=== PATIENT | male | born 1955 | race Caucasian/White ===

== ENCOUNTER → 2018-04-01 | Outpatient (CLI) | payer MEDICARE ==
[~2018-04-01] MED LIST: BUPIVACAINE 7.5MG/ML /DEXTROSE 82.5MG/ML 2 ML AMP INJ ONE; ENALAPRIL MALEA20 MG PO; HYDROCHLOROTHIA25 MG PO; MELOXICAM15 MG PO; NORCO 10-325 T1 EACH PO
--- NOTE | 2018-04-01 07:29 | Diagnostic Imaging Report ---
PROCEDURE: X-RAY CHEST, TWO VIEWS COMPARISON: None. INDICATIONS: PREOP LEFT HIP FINDINGS: The lungs are well-inflated. Linear opacity in the left lung base may reflect chronic change or subsegmental atelectasis. No consolidation, pleural effusion, or pneumothorax. Tortuosity and atherosclerotic calcification of the thoracic aorta with otherwise normal cardiomediastinal contour. No overt pulmonary edema. No acute osseous abnormality. CONCLUSION: Linear atelectasis or fibrotic change in the left lung base. Otherwise no acute cardiopulmonary abnormality. Dictated by: Dino Black M.D. on 04/01/2018 at 7:37 Electronically approved by: Dino Black M.D. on 04/01/2018 at 7:37
== END ==
LOC: RAD 06:28
PROVIDERS: ATTEND Internal Medicine
DX: Z01.818 Encounter for other preprocedural examination (principal)
CPT/HCPCS: 71046

== ENCOUNTER 2018-04-02 05:24 | Inpatient (IN) | payer MEDICARE ==
[2018-04-02] VITALS (7 sets, daily range): BP systolic 105–113; BP diastolic 57–71
[~2018-04-02] VITALS: Ht 182.9 cm; Wt 124.3 kg
[~2018-04-02 05:24] MED LIST changes: -BUPIVACAINE 7.5MG/ML /DEXTROSE 82.5MG/ML 2 ML AMP INJ ONE
[2018-04-02] MEDS ORDERED: CELECOXIB 200 MG CAP ONE (06:34)
[2018-04-02] MEDS ORDERED: DEXAMETHASONE SOD PHOS 10 MG/1 ML VIAL ONE (06:34)
[2018-04-02] MEDS ORDERED: GABAPENTIN 300 MG CAP ONE (06:34)
[2018-04-02] MEDS ORDERED: VANCOMYCIN 1GM/NS 250 ML 250 ML ONE (06:35)
[2018-04-02] MEDS ORDERED: MUPIROCIN 2% OINT 22 GM TUBE ONE (06:45)
[2018-04-02] MEDS ORDERED: BACITRACIN 50,000 UNIT VIAL ONE (06:45)
[2018-04-02] MEDS ORDERED: ROPIVACAINE 246.25 MG, EPINEPHRINE HCL 1:1000 0.5 MG, CLONIDINE HCL 0.08 MG, KETOROLAC ... INJ ONE ×5 (07:15)
[2018-04-02] MEDS ORDERED: TRANEXAMIC ACID 1,000 MG/10 ML ML ONE (07:19)
[2018-04-02] MEDS: SODIUM CHLORIDE 0.9% 1000ML 1,000 ML IV SCH ×2 (09:32→19:32)
[2018-04-02] MEDS ORDERED: DIPHENHYDRAMINE HCL INJ 50 MG/ML VIAL IM/IV PRN (09:45)
[2018-04-02] MEDS ORDERED: KETOROLAC TROMETHAMINE 30 MG/ML VIAL IV PRN (09:45)
[2018-04-02] MEDS ORDERED: HYDROCODONE/APAP 7.5MG-325MG 1 EA TAB PO PRN (09:45)
[2018-04-02] MEDS ORDERED: ACETAMINOPHEN 650 MG SUPP PR PRN (09:45)
[2018-04-02] MEDS ORDERED: DOCUSATE SODIUM 100 MG CAP PO PRN (09:45)
[2018-04-02] MEDS ORDERED: ONDANSETRON HCL INJ 2 MG/ML VIAL IV PRN (09:45)
[2018-04-02] MEDS ORDERED: HYDROCODONE/APAP 5MG-325MG TAB PO PRN (09:45)
[2018-04-02] MEDS ORDERED: PROMETHAZINE HCL (IM) 25 MG/ML VIAL IM PRN (09:45)
--- NOTE | 2018-04-02 10:01 | Diagnostic Imaging Report ---
PROCEDURE:X-RAY PELVIS, AP VIEW COMPARISON:None. INDICATIONS:POST LEFT HIP SURGERY FINDINGS: Status post bilateral total hip arthroplasties. Hardware appears intact. No evidence of fracture or malalignment on frontal view. Recent post operative changes in the left hip with superficial and deep gas. CONCLUSION: Post operative changes status post recent left hip arthroplasty and prior right hip arthroplasty as above. Intact hardware without evidence of malalignment. Dictated by: WARD TAYLOR M.D. on 04/02/2018 at 10:10 Electronically approved by: WARD TAYLOR M.D. on 04/02/2018 at 10:10
--- NOTE | 2018-04-02 11:38 | Operative Report ---
DATE OF PROCEDURE: April 02, 2018 [facility] END: Jan Soto PA-C The patient was brought to the operating room for induction of anesthesia. Throughout this case, my PA's assistance was necessary for retraction of soft tissue and positioning of the extremity. This allows for efficient and technically successful execution of the operation and is considered medically necessary. PREOPERATIVE DIAGNOSIS: Osteoarthritis, left hip. POSTOPERATIVE DIAGNOSIS: Osteoarthritis, left hip. PROCEDURE: Left total hip arthroplasty. INDICATIONS: The patient is a 62-year-old gentleman who has end-stage arthritis of his left hip. He has been through a right total hip replacement and bilateral knee replacements. His left hip has severe erosions into the femoral head with superolateral subluxation. The findings and options have been discussed. The patient would like to proceed with a left total hip replacement. The risks and benefits have been reviewed. The implants have been discussed. He states he understands and wishes to proceed. DESCRIPTION OF PROCEDURE: The patient was brought into the operating room and given a spinal anesthetic. He received prophylactic antibiotics and tranexamic acid in the holding area. He was positioned in the right lateral decubitus position. His left hip was prepped and draped in a sterile manner. Some added time and challenges were encountered due to the patient's weight of 270 pounds. His left hip was prepped and draped in a sterile manner. A preoperative time out was performed. A posterior approach was made to the left hip. Hemostasis was obtained with electrocautery. Abundant subcutaneous adipose tissue was encountered. The proximal tensor fascia and gluteal fascia were incised. A deep self-retaining Charnley retractor was placed. The wound was quite deep. The posterior capsule and short external rotators were exposed. Hemostasis was further obtained. The posterior capsule was released, and the hip was dislocated. An oscillating saw was used to resect the femoral head. Advanced erosions of the femoral head were noted. Acetabular retractors were placed. Sequential soft-tissue releases were performed until I had good visualization of the socket. A hypertrophic superior labrum was excised. The true floor of the acetabulum was established with a 46-mm reamer. The socket was then sequentially reamed up to 59 mm. A Helga Biomet 60 mm outer diameter OsseoTi cup was then impacted into place. The hip had been thoroughly irrigated with a shower-tip pulsatile lavage. Good fixation was felt to be obtained. Fixation was augmented with a single 25-mm cancellous screw placed into the ilium. Marginal osteophytes particularly over the anterior rim were excised. A highly cross-link polyethylene liner with a 36 mm inner diameter was then impacted into place. Care was taken to make sure that there was no evidence of soft-tissue interposition. A portion of a 100-mL premixed pericapsular DEAJH injection was placed into the surrounding acetabular tissue. The socket was packed with moistly soaked lap sponge, and attention was directed towards the proximal femur. A box cutting osteotome and taper pin reamer were used to establish entry to the femoral canal. The Helga Biomet Taperloc broaches were then impacted. A #18 stem was necessary for stability and trial reductions. I felt that a +3-mm femoral head provided appropriate voodoo of limb length and stability. The hip was carefully put through a full arc of motion. There was no anterior impingement or dislocation with the knee at 90 degrees of flexion and 30 degrees of internal rotation. The trial components were removed. The hip was further irrigated with a shower-tip pulsatile lavage. The remainder of the DEJAH injection was placed into the surrounding soft tissue. The implants were seated, and a final reduction was performed. The head was ceramic. The posterior capsule was quite hypertrophic and nicely repaired with interrupted #2 Ethibond. The proximal tensor fascia and gluteal fascia were closed with #2 Ethibond. The skin was closed with subcuticular Vicryl and emeterio. A sterile Aquacel bandage was applied. The patient was returned to the supine position. He was transported to the recovery room in stable condition. Blood loss was approximately 100 mL; and at the end of the procedure, all needle and sponge counts were correct. Job#: [id number]
[2018-04-02] MEDS: ACETAMINOPHEN 1000 MG/100 ML IV SCH ×2 (12:11→17:17)
--- OUTSIDE RECORDS SUMMARY | 2018-04-02 14:31 | XMS REPORT | Clinical Summary ---
Author Author [facility] Organization [facility] Address Unknown Phone Unavailable Care Team Providers Care Oven Worker Name Role Phone Albert Sherman MD PCP Allergies Active Allergy Reactions Severity Noted Date Comments Penicillins Other 01/31/2011 Current Medications Prescription Sig. Disp. Refills Start End Date Status Date Meloxicam 15 mg Take 1 tablet by mouth 90 tablet 1 02/10/20 Active tabletIndications: Left daily 17 hip pain fenofibrate Take 1 tablet by mouth 90 tablet 1 05/28/20 Active nanocrystallized (TRICOR) daily. 17 145 mg tabletIndications: Hypertriglyceridemia hydroCHLOROthiazide TAKE 1 TABLET BY MOUTH 90 tablet 1 12/19/19 Active (HYDRODIURIL) 25 mg DAILY 18 tabletIndications: Uncontrolled hypertension enalapril (VASOTEC) 20 mg TAKE 1 TABLET BY MOUTH 180 tablet 0 03/21/20 Active tabletIndications: TWO TIMES DAILY 18 Uncontrolled hypertension HYDROcodone-acetaminophen Take 1 tablet by mouth 11/01/19 Discontin (NORCO) 10-325 mg tablet every 6 hours as needed 18 ued for Pain. hydroCHLOROthiazide Take 1 tablet by mouth 90 tablet 1 02/09/20 06/15/20 Discontin (HYDRODIURIL) 25 mg daily. 17 17 ued tabletIndications: Uncontrolled hypertension enalapril (VASOTEC) 20 mg Take 1 tablet by mouth 2 180 tablet 1 02/09/20 09/08/19 Discontin tabletIndications: times daily. 17 18 ued Uncontrolled hypertension Meloxicam 15 mg Take 1 tablet by mouth 90 tablet 2 02/09/20 08/21/19 Discontin tabletIndications: Left daily. 17 18 ued hip pain gabapentin (NEURONTIN) Take 1 tablet once daily 276 capsule 1 05/28/20 08/25/19 Discontin 300 mg for 2 days , then take 1 17 18 ued capsuleIndications: Right tablet twice daily for 2 inguinal pain, Left hip days then take 1 tablet pain three times daily for three months .. hydroCHLOROthiazide TAKE 1 TABLET BY MOUTH 90 tablet 1 06/18/19 12/12/19 Discontin (HYDRODIURIL) 25 mg DAILY 18 18 ued tabletIndications: Uncontrolled hypertension sulfamethoxazole-trimetho Take 1 tablet by mouth 2 20 tablet 0 07/16/19 07/16/19 Discontin prim (BACTRIM DS) 800-160 times daily for 10 days. 18 18 ued mg per tabletIndications: Cellulitis and abscess of leg, except foot naproxen (NAPROSYN) 500 Take 1 tablet by mouth 2 30 tablet 0 07/16/19 08/23/19 Discontin mg tabletIndications: times daily (with meals). 18 18 ued Cellulitis and abscess of leg, except foot sulfamethoxazole-trimetho Take 1 tablet by mouth 2 20 tablet 0 07/16/19 07/26/19 prim (BACTRIM DS) 800-160 times daily for 10 days. 18 18 mg per tabletIndications: Cellulitis and abscess of leg, except foot Meloxicam 15 mg Take 1 tablet by mouth 90 tablet 2 08/23/19 11/01/19 Discontin tabletIndications: Left daily. 18 18 ued hip pain enalapril (VASOTEC) 20 mg TAKE 1 TABLET BY MOUTH 180 tablet 1 09/08/19 03/17/20 Discontin tabletIndications: TWO TIMES DAILY 18 18 ued Uncontrolled hypertension acetaminophen (TYLENOL) Take 1 tablet by mouth 56 tablet 0 11/01/19 11/15/19 325 mg tabletIndications: every 6 hours for 14 18 18 Status post total days. replacement of right hip aspirin 325 mg Take 1 tablet by mouth 2 84 tablet 0 11/01/19 12/13/19 tabletIndications: Status times daily for 42 days. 18 18 post total replacement of right hip docusate sodium (COLACE) Take 1 capsule by mouth 2 10 capsule 0 11/01/19 11/11/19 100 mg times daily for 10 days. 18 18 capsuleIndications: Status post total replacement of right hip traMADol (ULTRAM) 50 mg Take 1 tablet by mouth 30 tablet 2 11/01/19 11/15/19 tabletIndications: Status every 6 hours as needed 18 18 post total replacement of for up to 14 days for right hip Pain. HYDROcodone-acetaminophen Take 1 to 2 tablets by 50 tablet 0 10/31/11/15/19 (NORCO) 10-325 mg mouth every 4 to 6 hours 18 18 tabletIndications: Status as needed for pain. post total replacement of right hip methocarbamol (ROBAXIN) Take 1 tablet by mouth 4 56 tablet 0 11/01/19 11/15/19 750 mg tabletIndications: times daily for 14 days. 18 18 Status post total replacement of right hip tiZANidine (ZANAFLEX) 4 Take 1 tablet by mouth 3 42 tablet 0 11/01/19 11/01/19 Discontin mg tabletIndications: times daily for 14 days. 18 18 ued Status post total replacement of right hip tiZANidine (ZANAFLEX) 4 Take 1 tablet by mouth 3 42 tablet 0 10/31/11/15/19 mg tabletIndications: times daily for 14 days. 18 18 Status post total replacement of right hip Active Problems Problem Noted Date Arthritis of left hip 01/10/2018 Overview: Added automatically from request for surgery [id number] Impaired functional mobility, balance, gait, and endurance 11/14/2017 S/P total hip arthroplasty 10/31/2017 Hip osteoarthritis 08/27/2017 Overview: Added automatically from request for surgery [id number] Arthritis of both hips 08/13/2017 Chronic right shoulder pain 08/10/2017 Pain of left hip joint 08/10/2017 Cellulitis and abscess of left leg 07/25/2017 Shoulder pain 02/10/2014 Resolved Problems Problem Noted Date Resolved Date Osteoarthritis of right hip 10/25/2017 10/31/2017 Overview: Added automatically from request for surgery [id number] Encounters Date Type Specialty Care Team Description 03/29/2018 Refill Family Practice Albert Sherman MD Left hip pain 03/17/2018 Refill Family Practice Albert Sherman MD Uncontrolled hypertension 02/27/2018 Procedure Pass 02/13/2018 Office Visit Orthopedics Vinny Rossi MD Primary osteoarthritis of one hip (Primary Dx) 01/10/2018 Hospital Radiology Albert Sherman MD Arthritis of both hips Encounter 01/10/2018 Office Visit Orthopedics Keith Purvis MD Arthritis of left hip Addie Kate MD (Primary Dx); Arthritis of both hips 12/11/2017 Refill [facility] Albert Sherman MD Uncontrolled hypertension 12/10/2017 Hospital Radiology Keith Purvis MD Arthritis of both hips Encounter 12/10/2017 Office Visit Orthopedics Keith Purvis MD S/P hip replacement, Addie Kate MD right (Primary Dx) 12/10/2017 Ancillary Orthopedics Tavares Lopez RN Arthritis of both hips Orders 11/14/2017 Therapy Physical Therapy Chhaya, Nayeli, PT Status post total replacement of right hip (Primary Dx); Impaired functional mobility, balance, gait, and endurance 11/14/2017 Office Visit Orthopedics Addie Kate MD Status post total Keith Purvis MD replacement of right hip 11/14/2017 [facility] Radiology Keith Purvis MD Status post total Encounter replacement of right hip 11/07/2017 Emergency Emergency Medicine Blaine Nur MD Leg swelling (Primary Dx) 11/07/2017 Nurse Triage Tracy Hein RN 11/06/2017 Pharmacy Visit 11/05/2017 Pharmacy Visit 11/02/2017 Pharmacy Visit 11/01/2017 Pharmacy Visit 10/31/2017 Pharmacy Visit 10/30/2017 [facility] Addie Kate MD Primary osteoarthritis of - Encounter right hip (Primary Dx); 11/01/2017 Osteoarthritis of right hip, unspecified osteoarthritis type; Status post total replacement of right hip 10/30/2017 Procedure Pass 10/30/2017 Surgery Addie Kate MD ORTHO - REPLACEMENT, TOTAL HIP 10/23/2017 Hospital Keith Purvis MD Encounter 10/23/2017 Telephone Orthopedics Brandon Puente, Appointment Related ResidentMD Questions 10/23/2017 Procedure Pass 10/03/2017 [facility] Anesthesiology Karma Gleason, ERASMO Encounter 10/03/2017 Anesthesia Karma Gleason, ERASMO Event 09/18/2017 Nutrition Nutrition Kristel Peter 09/07/2017 Refill [facility] Albert Sherman MD Uncontrolled hypertension 08/27/2017 [facility] Radiology Patrice Anand MD Encounter 08/27/2017 Office Visit Orthopedics Keith Purvis MD Arthritis of both hips (Primary Dx) 08/24/2017 Ancillary Radiology Albert Sherman MD Procedure 08/24/2017 Office Visit [facility] Albert Sherman MD Bilateral hip pain (Primary Dx) 08/20/2017 Refill [facility] Albert Sherman MD Left hip pain 08/17/2017 Orders Only [facility] Albert Sherman MD Occult blood positive stool (Primary Dx) 08/15/2017 Pharmacy Visit 08/13/2017 Office Visit Orthopedics Keith Purvis MD Arthritis of both hips (Primary Dx) 08/13/2017 Lab Appointment Lab Albert Sherman MD Screening for condition 08/13/2017 [facility] Radiology Albert Sherman MD Chronic right shoulder Encounter pain; Pain of left hip joint 07/31/2017 Office Visit General Surgery Melissa Cisse NP Right inguinal hernia (Primary Dx) 07/25/2017 Office Visit [facility] Lopez Christopher MD Cellulitis and abscess of left leg (Primary Dx) 07/20/2017 Office Visit [facility] Lopez Christopher MD Colon cancer screening (Primary Dx) 07/18/2017 Office Visit [facility] Lopez Christopher MD Cellulitis and abscess of leg, except foot (Primary Dx) 07/16/2017 Office Visit [facility] Lopez Christopher MD Inguinal hernia of right side without obstruction or gangrene (Primary Dx); Colon cancer screening; Cellulitis and abscess of leg, except foot 07/16/2017 Pharmacy Visit 07/10/2017 [facility] Radiology Albert Sherman MD Encounter 06/27/2017 Orders Only [facility] Albert Sherman MD ERRONEOUS ENCOUNTER--DISREGARD (Primary Dx) 06/15/2017 Refill [facility] Albert Sherman MD Uncontrolled hypertension 06/05/2017 Telephone [facility] Albert Sherman MD Other Follow-up 05/28/2017 Office Visit [facility] Albert Armendariz MD Right inguinal pain (Primary Dx); Left hip pain; Hypertriglyceridemia; Elevated bilirubin; Need for influenza vaccination; Need for qlrktmtftz-eaypjhu-feiwby sis (Tdap) vaccine; Screening for condition after 04/01/2017 Immunizations Name Dates Previously Given Next Due Influenza Vaccine 06/23/2014 Influenza Vaccine, 05/28/2017 Seasonal, Injectable TDap (Tetanus Toxoid, 05/28/2017 Reduced Diphtheria Toxoid And Acellular Pertussis, Absorbed) Social History Tobacco Use Types Packs/Day Years Used Date Never Smoker Smokeless Tobacco: Never Used Tobacco Cessation: Counseling Given: No Alcohol Use Drinks/Week oz/Week Comments No Sex Assigned at Date Recorded Not on file Last Filed Vital Signs Vital Sign Reading Time Taken Blood Pressure 133/67 02/13/2018 7:30 AM CDT Pulse 69 02/13/2018 7:30 AM CDT Temperature 36.9 C (98.5 F) 02/13/2018 7:30 AM CDT Respiratory Rate 20 02/13/2018 7:30 AM CDT Oxygen Saturation 99% 11/07/2017 10:09 PM CDT Inhaled Oxygen - - Concentration Weight 121.4 kg (267 lb 9.6 oz) 02/13/2018 7:30 AM CDT Height 182.9 cm (6') 02/13/2018 7:30 AM CDT Body Mass Index 36.29 02/13/2018 7:30 AM CDT Plan of Treatment Date Type Specialty Care Team Description 06/13/2018 Office Visit Gastroenterology Kalyn Auguste NP Ref#[id number] [address] [place] [address] [id number] Health Maintenance Due Date Last Done Comments Colorectal Cancer Scrn 08/13/2018 08/13/2017 Annual (FIT/FOBT) Age 50 to 75 Implants Implanted Type Area Textile Machine Operator Device Expiration Model / Identifier Date Serial / Lot Bone Screw 6.5mm Diameter 25mm Right: Helga Pimovation 08/16/2027 Length Hip(s) / Implanted: Qty: 1 on 10/30/2017 by / Addie Kate MD [id number] Taperloc Complete Primary Femoral Right: Biomet Pimovation 05/05/2027 [id number] Porous Coated Stem Reduced Distal Hip(s) / [id number] Standard Offset Type 1 / Taper [id number] Implanted: Qty: 1 on 10/30/2017 by Addie Kate MD [id number] Osseoti Acetabular Shell 4 Hole Right: [employer] 10/27/2025 [id number] Shell Size 64mm Liner Size H Hip(s) / Implanted: Qty: 1 on 10/30/2017 by / Addie Kate MD [id number] Acetabular Liner Neutral Arcomxl Right: [employer] 12/16/2019 [id number] Highly Crosslinked Head Size 40mm Hip(s) / Liner Size H / Implanted: Qty: 1 on 10/30/2017 by [id number] Addie Kate MD G7 Acetabular Liner Neutral E1 Head Right: [employer] 05/21/2022 [id number] Size 36mmm Liner H Hip(s) / Implanted: Qty: 1 on 10/30/2017 by / Addie Kate MD [id number] Modular Head Component +3mm Neck Right: [employer] 08/11/2027 [id number] 36mm Type 1 Taper Hip(s) / Implanted: Qty: 1 on 10/30/2017 by / Addie Kate MD [id number] Procedures Procedure Name Priority Date/Time Associated Diagnosis Comments XRAY HIP BILATERAL 2 Routine 01/10/2018 Arthritis of both hips Results for this VIEWS AND AP PELVIS 8:23 AM CDT procedure are in the results section. XRAY HIP UNILATERAL 2/3 Routine 12/10/2017 Arthritis of both hips Results for this VIEWS 9:42 AM CDT procedure are in the results section. XRAY HIP BILATERAL 2 Routine 11/14/2017 Status post total Results for this VIEWS AND AP PELVIS 9:55 AM CDT replacement of right hip procedure are in the results section. VBG POC Routine 11/07/2017 Results for this 9:20 PM CDT procedure are in the results section. BMP POC Routine 11/07/2017 Results for this 9:19 PM CDT procedure are in the results section. DUPLEX DOPPLER LOWER STAT 11/07/2017 Results for this EXTREMITY VENOUS, 7:50 PM CDT procedure are in the UNILATERAL OR LIMITED results section. BMP POC Routine 11/07/2017 Results for this 4:38 PM CDT procedure are in the results section. VBG POC Routine 11/07/2017 Results for this 4:38 PM CDT procedure are in the results section. CBC/DIFF STAT 11/07/2017 Results for this 4:32 PM CDT procedure are in the results section. 12 LEAD EKG Routine 11/07/2017 Results for this 4:27 PM CDT procedure are in the results section. CONSULT CLINICAL CASE Routine 10/31/2017 MANAGEMENT (RN/SW) 8:24 AM CDT IP CONSULT TO Routine 10/31/2017 OCCUPATIONAL THERAPY 8:23 AM CDT BASIC METABOLIC PANEL Routine 10/31/2017 Results for this 5:36 AM CDT procedure are in the results section. CBC/DIFF Routine 10/31/2017 Results for this 5:36 AM CDT procedure are in the results section. HEAD TELLER Routine 10/30/2017 6:23 PM CDT CONSULT CLINICAL CASE Routine 10/30/2017 MANAGEMENT (RN/SW) 3:46 PM CDT CONSULT CLINICAL CASE Routine 10/30/2017 MANAGEMENT (RN/SW) 3:45 PM CDT HEAD TELLER Routine 10/30/2017 3:45 PM CDT IP CONSULT TO PHYSICAL Routine 10/30/2017 THERAPY 2:27 PM CDT CBC/DIFF Routine 10/30/2017 Results for this 1:10 PM CDT procedure are in the results section. XRAY PELVIS 1 VIEW Routine 10/30/2017 Osteoarthritis of right Results for this 12:51 PM CDT hip, unspecified procedure are in the osteoarthritis type results section. XRAY PELVIS 1 VIEW Routine 10/30/2017 Results for this 12:37 PM CDT procedure are in the results section. VENOUS CORD BLOOD STAT 10/30/2017 Results for this HEMOGLOBIN 10:33 AM CDT procedure are in the results section. BLOOD GAS, AYAAN STAT 10/30/2017 Results for this 10:33 AM CDT procedure are in the results section. ELECTROLYTES STAT 10/30/2017 Results for this 10:33 AM CDT procedure are in the results section. CALCIUM, IONIZED STAT 10/30/2017 Results for this 10:33 AM CDT procedure are in the results section. GLUCOSE STAT 10/30/2017 Results for this 10:33 AM CDT procedure are in the results section. XRAY PELVIS 1 VIEW Routine 10/30/2017 Results for this 10:12 AM CDT procedure are in the results section. XRAY PELVIS 1 VIEW Routine 10/30/2017 Primary osteoarthritis of Results for this 9:58 AM CDT right hip procedure are in the results section. VENOUS HEMOGLOBIN STAT 10/30/2017 Results for this 9:32 AM CDT procedure are in the results section. BLOOD GAS, AYAAN STAT 10/30/2017 Results for this 9:32 AM CDT procedure are in the results section. SODIUM STAT 10/30/2017 Results for this 9:32 AM CDT procedure are in the results section. POTASSIUM STAT 10/30/2017 Results for this 9:32 AM CDT procedure are in the results section. CALCIUM, IONIZED STAT 10/30/2017 Results for this 9:32 AM CDT procedure are in the results section. GLUCOSE STAT 10/30/2017 Results for this 9:32 AM CDT procedure are in the results section. CHLORIDE STAT 10/30/2017 Results for this 9:32 AM CDT procedure are in the results section. ORTHO - REPLACEMENT, 10/30/2017 Osteoarthritis of right TOTAL HIP 7:30 AM CDT hip TYPE AND SCREEN Routine 10/03/2017 10:45 AM CDT PT/INR STAT 10/03/2017 Results for this 10:45 AM CDT procedure are in the results section. CBC/DIFF STAT 10/03/2017 Results for this 10:45 AM CDT procedure are in the results section. BASIC METABOLIC PANEL STAT 10/03/2017 Results for this 10:45 AM CDT procedure are in the results section. XRAY HIP UNILATERAL 2/3 STAT 08/27/2017 Arthritis of both hips Results for this VIEWS 8:43 AM CDT procedure are in the results section. 12 LEAD EKG Routine 08/24/2017 Bilateral hip pain Results for this 1:31 PM BRANCH OPERATIONS MANAGER procedure are in the results section. XRAY CHEST 2 VIEWS Routine 08/24/2017 Bilateral hip pain Results for this 1:28 PM BRANCH OPERATIONS MANAGER procedure are in the results section. XRAY HIP UNILATERAL 2/3 Routine 08/13/2017 Pain of left hip joint Results for this VIEWS 1:34 PM BRANCH OPERATIONS MANAGER procedure are in the results section. XRAY CLAVICLE COMPLETE Routine 08/13/2017 Chronic right shoulder Results for this 1:34 PM BRANCH OPERATIONS MANAGER pain procedure are in the results section. XRAY SHOULDER 2 VIEWS MIN Routine 08/13/2017 Chronic right shoulder Results for this 1:34 PM BRANCH OPERATIONS MANAGER pain procedure are in the results section. OCCULT BLOOD ICT Routine 08/13/2017 Screening for condition Results for this 11:10 AM BRANCH OPERATIONS MANAGER procedure are in the results section. HEMOCCULT KIT FOR Routine 07/20/2017 Colon cancer screening SPECIMEN COLLECTION AT 8:14 AM BRANCH OPERATIONS MANAGER HOME WOUND STAIN / CULTURE Routine 07/16/2017 Cellulitis and abscess of Results for this 9:58 AM BRANCH OPERATIONS MANAGER leg, except foot procedure are in the results section. HEMOCCULT KIT FOR Routine 07/16/2017 Colon cancer screening SPECIMEN COLLECTION AT 9:13 AM BRANCH OPERATIONS MANAGER HOME U/S EXTREMITY Routine 07/10/2017 Right inguinal pain Results for this NONVASCULAR, LIMITED 2:39 PM BRANCH OPERATIONS MANAGER procedure are in the results section. HEPATITIS PANEL Routine 05/28/2017 Elevated bilirubin Results for this 8:46 AM BRANCH OPERATIONS MANAGER procedure are in the results section. LIVER PROFILE Routine 05/28/2017 Elevated bilirubin Results for this 8:46 AM BRANCH OPERATIONS MANAGER procedure are in the results section. HEMOCCULT KIT FOR Routine 05/28/2017 Screening for condition SPECIMEN COLLECTION AT 8:19 AM BRANCH OPERATIONS MANAGER HOME after 04/01/2017 Results * XRAY HIP BILATERAL 2 VIEWS AND AP PELVIS (01/10/2018 8:23 AM) Only the most recent of 2 results within the time period is included. Impressions Performed At IMPRESSION: SMS 1.Unchanged satisfactory appearance of the right total hip arthroplasty without evidence of hardware complication. 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 This [facility] radiology report is a preliminary resident dictation until finalized by an attending.Changes to this preliminary report may occur in an additional preliminary or finalized version. Dictated By: Miki Shin MD, 01/10/2018 9:17 AM I have reviewed the study and agree with the findings in this report. Signed By: Joseph Washington MD, 01/10/2018 10:57 AM Narrative Performed At EXAM: XR BILATERAL HIP 2 VIEWS SMS DATE:01/10/2018 8:23 AM INDICATION: PAIN. Arthritis of both hips COMPARISON: 12/10/2017 TECHNIQUE: 2 views of the bilateral hips including the pelvis DISCUSSION: Unchanged appearance of the right total hip arthroplasty. There is no perihardware lucency or evidence of failure. Avascular necrosis of the left hip is again noted, with collapse of the femoral head superiorly, sclerotic and subchondral cystic changes, and severe joint space narrowing, grossly unchanged. There is deformity of the right iliac and anterior SI joint. No soft tissue abnormality is identified. Procedure Note Interface, Rad/Mammog In - 01/10/2018 11:02 AM CDT EXAM: XR BILATERAL HIP 2 VIEWS DATE: 01/10/2018 8:23 AM INDICATION: PAIN. Arthritis of both hips COMPARISON: 12/10/2017 TECHNIQUE: 2 views of the bilateral hips including the pelvis DISCUSSION: Unchanged appearance of the right total hip arthroplasty. There is no perihardware lucency or evidence of failure. Avascular necrosis of the left hip is again noted, with collapse of the femoral head superiorly, sclerotic and subchondral cystic changes, and severe joint space narrowing, grossly unchanged. There is deformity of the right iliac and anterior SI joint. No soft tissue abnormality is identified. IMPRESSION IMPRESSION: 1. Unchanged satisfactory appearance of the right total hip arthroplasty without evidence of hardware complication. 2. Grade 4 avascular necrosis of the left hip, unchanged. This [facility] radiology report is a preliminary resident dictation until finalized by an attending. Changes to this preliminary report may occur in an additional preliminary or finalized version. Dictated By: Miki Shin MD, 01/10/2018 9:17 AM I have reviewed the study and agree with the findings in this report. Signed By: Joseph Washington MD, 01/10/2018 10:57 AM Performing Organization Address City/State/Zipcode Phone Number SMS * XRAY HIP UNILATERAL 2/3 VIEWS (12/10/2017 9:42 AM) Only the most recent of 3 results within the time period is included. Impressions Performed At IMPRESSION: SMS 1.Right hip total arthroplasty without evidence of hardware complications. 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 Dictated By: Kemal Ocampo MD, 12/10/2017 10:59 AM I have reviewed the study and agree with the findings in this report. Signed By: Yolette Hubbard MD, 12/10/2017 11:03 AM Narrative Performed At EXAM: XRHIP [address] [facility] DATE:12/10/2017 9:42 AM INDICATION: Pain COMPARISON: 11/14/2014 TECHNIQUE: 3 views of the hip including the pelvis DISCUSSION: No significant change in the right hip total arthroplasty alignment. No perihardware lucency or evidence of hardware failure. Avascular necrosis of the left hip is again noted with collapse of the femoral head superiorly, severe joint space narrowing, sclerotic changes and subchondral cyst, overall unchanged. Deformity of the right iliac and anterior SI joint noted. No soft tissue abnormality. Procedure Note Interface, Rad/Mammog In - 12/10/2017 11:08 AM CDT EXAM: XR HIP 3 VIEWS DATE: 12/10/2017 9:42 AM INDICATION: Pain COMPARISON: 11/14/2014 TECHNIQUE: 3 views of the hip including the pelvis DISCUSSION: No significant change in the right hip total arthroplasty alignment. No perihardware lucency or evidence of hardware failure. Avascular necrosis of the left hip is again noted with collapse of the femoral head superiorly, severe joint space narrowing, sclerotic changes and subchondral cyst, overall unchanged. Deformity of the right iliac and anterior SI joint noted. No soft tissue abnormality. IMPRESSION IMPRESSION: 1. Right hip total arthroplasty without evidence of hardware complications. 2. Grade 4 avascular necrosis of the left hip, unchanged. Dictated By: Kemal Ocampo MD, 12/10/2017 10:59 AM I have reviewed the study and agree with the findings in this report. Signed By: Yolette Hubbard MD, 12/10/2017 11:03 AM Performing Organization Address [facility] [address]/[facility] Phone Number SMS * VBG POC (11/07/2017 9:20 PM) Only the most recent of 2 results within the time period is included. pH, Ayaan POC 7.59 (H)Comment: Physician 7.33 - 7.43 [facility] 1 Notified pCO2, Ayaan POC 29.0 (L) 38.0 - 50.0 mm Hg [facility] 1 pO2, Ayaan POC 29 (L) 50 - 75 mm Hg [facility] 1 Base Excess, Ayaan POC 6 mmol/L [facility] 1 HCO3, Ayaan POC 28.0 (H) 22.0 - 26.0 mmol/L [facility] 1 % Sat, Ayaan POC 67 60 - 85 % [facility] 1 Lactic Acid, Ayaan POC 0.96 0.4 - 2.0 mmol/L [facility] 1 TCO2, AYAAN POC 29 21 - 32 mmol/L [facility] 1 Performing Organization Address [facility] [address]/[facility] Phone Number MISYS [facility] 1 * BMP POC (11/07/2017 9:19 PM) Only the most recent of 2 results within the time period is included. CO2 POC 27Comment: Physician Notified 21 - 32 mmol/L [facility] Chloride POC 98 98 - 107 mmol/L [facility] Potassium POC 3.9 3.50 - 5.10 mmol/L [facility] Sodium POC 137 136 - 145 mmol/L [facility] 1 Glucose POC 114 (H) 74 - 106 mg/dL [facility] 1 Urea Nitrogen POC 24 (H) 7 - 18 mg/dL [facility] 1 Creatinine POC 1.3 0.6 - 1.3 mg/dL [facility] 1 Calcium Ionized POC 1.16 1.15 - 1.29 mmol/L [facility] 1 Hemoglobin POC 8.2 (L) 14.0 - 18.0 g/dL [facility] 1 Hematocrit POC 24.0 (L) 40.0 - 54.0 % [facility] 1 GFR, Estimated 56 mL/min/1.73 m2 [facility] 1 GFR, Estim, Afr-Am >60 mL/min/1.73 m2 [facility] 1 Performing Organization Address City/State/Zipcode Phone Number MISYS [facility] * DUPLEX DOPPLER LOWER EXTREMITY VENOUS, UNILATERAL OR LIMITED (11/07/2017 7:50 PM) Impressions Performed At IMPRESSION: SMS 1.No deep venous thrombosis (DVT). This [facility] radiology report is a preliminary resident dictation until finalized by an attending.Changes to this preliminary report may occur in an additional preliminary or finalized version. Dictated By: Kristina Lombardo MD, 11/07/2017 8:05 PM I have reviewed the study and agree with the findings in this report. Signed By: Herve Mahoney MD, 11/07/2017 8:11 PM Narrative Performed At EXAM: US RIGHT LOWER EXTREMITY VENOUS DOPPLER SMS DATE: 11/07/2017 7:50 PM INDICATION: Leg swelling. ADDITIONAL INFORMATION: None. COMPARISON: None. TECHNIQUE: Multiplanar grayscale, color Doppler and spectral Doppler ultrasound of the right lower extremity veins. FINDINGS: Right Thigh Veins: Common Femoral: Patent. Femoral (SFV): Patent. Popliteal: Patent. Proximal Greater Saphenous: Patent. Deep Femoral Veins: Patent. Other: None. Procedure Note Interface, Rad/Mammog In - 11/07/2017 8:16 PM CDT EXAM: US RIGHT LOWER EXTREMITY VENOUS DOPPLER DATE: 11/07/2017 7:50 PM INDICATION: Leg swelling. ADDITIONAL INFORMATION: None. COMPARISON: None. TECHNIQUE: Multiplanar grayscale, color Doppler and spectral Doppler ultrasound of the right lower extremity veins. FINDINGS: Right Thigh Veins: Common Femoral: Patent. Femoral (SFV): Patent. Popliteal: Patent. Proximal Greater Saphenous: Patent. Deep Femoral Veins: Patent. Other: None. IMPRESSION IMPRESSION: 1. No deep venous thrombosis (DVT). This [facility] radiology report is a preliminary resident dictation until finalized by an attending. Changes to this preliminary report may occur in an additional preliminary or finalized version. Dictated By: Kristina Lombardo MD, 11/07/2017 8:05 PM I have reviewed the study and agree with the findings in this report. Signed By: Herve Mahoney MD, 11/07/2017 8:11 PM Performing Organization Address City/State/Zipcode Phone Number SMS * CBC/DIFF (11/07/2017 4:32 PM) Only the most recent of 4 results within the time period is included. WBC 12.3 (H) 4.5 - 12.0 K/uL [facility] RBC 2.82 (L) 4.60 - 6.20 M/uL [facility] Hemoglobin 8.8 (L) 14.0 - 18.0 g/dL [facility] Hematocrit 28.2 (L) 40.0 - 54.0 % [facility] MCV 100 (H) 82 - 92 fL [facility] MCH 31.2 (H) 27.0 - 31.0 pg [facility] MCHC 31.2 (L) 32.0 - 36.0 g/dL [facility] RDW 46.0 (H) 35.1 - 43.9 fL [facility] Platelet 542 (H) 150 - 400 K/uL [facility] Mean Platelet Volume 9.8 9.4 - 12.4 fL [facility] Percent NRBC 0.0 [facility] Absolute NRBC 0.00 [facility] Neutrophil 75.0 (H) 34.0 - 67.9 % [facility] Lymphocyte 13.0 (L) 21.8 - 50.0 % [facility] Monocyte 6.0 5.3 - 12.0 % [facility] Eosinophil 3.0 0.8 - 5.0 % [facility] Basophil 1.0 0.2 - 1.2 % [facility] Neutrophil, Abs 9.22 (H) 1.78 - 5.36 K/uL [facility] Lymphocyte, Abs 1.60 1.32 - 3.57 K/uL [facility] Monocyte, Abs 0.74 0.30 - 0.82 K/uL [facility] 2 Eosinophil, Abs 0.37 0.04 - 0.54 K/uL [facility] Basophil, Abs 0.12 (H) 0.01 - 0.08 K/uL [facility] Atypical Lymph 1 % [facility] Metamyel 1 % [facility] Specimen Blood Performing Organization Address City/State/[facility] Phone Number [facility] * 12 LEAD EKG (11/07/2017 4:27 PM) 12 LEAD EKG FOR [facility] Test Date:2017-11-07 Pat Name: KRISTIN HEIN Department: Room: Gender: 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 * BASIC METABOLIC PANEL (10/31/2017 5:36 AM) Only the most recent of 2 results within the time period is included. CO2 24 21 - 32 mmol/L [facility] 4 Chloride 105 98 - 107 mmol/L [facility] 4 Potassium 4.4 3.50 - 5.10 mmol/L [facility] 4 Sodium 138 136 - 145 mmol/L [facility] 4 Glucose 128 (H) 70 - 99 mg/dL [facility] 4 Urea Nitrogen 26 (H) 7 - 18 mg/dL [facility] 4 Creatinine 1.13 0.60 - 1.30 mg/dL [facility] 4 Anion Gap 9 [facility] 4 Calcium 8.5 8.50 - 10.20 mg/dL [facility] 4 GFR, Estimated >60 mL/min/1.73 m2 [facility] 4 GFR, Estim, Afr-Am >60 mL/min/1.73 m2 [facility] 4 Specimen Blood Performing Organization Address City/State/Zipcode Phone Number ROJAS [facility] * XRAY PELVIS 1 VIEW (10/30/2017 12:51 PM) Only the most recent of 4 results within the time period is included. Impressions Performed At IMPRESSION:Interim removal of the femoral rasp and placement of the SMS femoral portion of the right total hip arthroplasty, without complication Dictated By: Marques Ro MD, 10/30/2017 1:43 PM I have reviewed the study and agree with the findings in this report. Signed By: Jeane Patel MD, 10/30/2017 1:55 PM Narrative Performed At EXAM: XR PELVIS [address] [facility] EXAM: XR PELVIS 1 VIEW DATE:10/30/2017 at 1112 and 1220 hours INDICATION: intra-operative use. Osteoarthritis of right hip, unspecified osteoarthritis type COMPARISON: Pelvic radiographs on 10/30/2017 at 0927 hours and 0958 hours. TECHNIQUE: 2 sequential frontal views of the pelvis, obtained intraoperatively and subsequent postoperatively DISCUSSION: Intraoperative radiograph at 1112 hours: femoral rasp and acetabular cup remain in unchanged, satisfactory alignment. Postoperative radiograph at 1220 hours: There has been interim removal of the right femoral rasp and placement of the femoral portion of the bipolar right total hip arthroplasty in satisfactory alignment without evidence of complication. There is expected subcutaneous air about the right hip and swelling by the surgical site. Remaining findings are unchanged Procedure Note Interface, Rad/Mammog In - 10/30/2017 2:00 PM CDT EXAM: XR PELVIS 1 VIEW EXAM: XR PELVIS 1 VIEW DATE: 10/30/2017 at 1112 and 1220 hours INDICATION: intra-operative use. Osteoarthritis of right hip, unspecified osteoarthritis type COMPARISON: Pelvic radiographs on 10/30/2017 at 0927 hours and 0958 hours. TECHNIQUE: 2 sequential frontal views of the pelvis, obtained intraoperatively and subsequent postoperatively DISCUSSION: Intraoperative radiograph at 1112 hours: femoral rasp and acetabular cup remain in unchanged, satisfactory alignment. Postoperative radiograph at 1220 hours: There has been interim removal of the right femoral rasp and placement of the femoral portion of the bipolar right total hip arthroplasty in satisfactory alignment without evidence of complication. There is expected subcutaneous air about the right hip and swelling by the surgical site. Remaining findings are unchanged IMPRESSION IMPRESSION: Interim removal of the femoral rasp and placement of the femoral portion of the right total hip arthroplasty, without complication Dictated By: Marques Ro MD, 10/30/2017 1:43 PM I have reviewed the study and agree with the findings in this report. Signed By: Jeane Patel MD, 10/30/2017 1:55 PM Performing Organization Address City/[facility] [address]/[facility] Phone Number SMS * VENOUS CORD BLOOD HEMOGLOBIN (10/30/2017 10:33 AM) Cord Blood Hemoglobin 11.4 10.5 - 14.0 g/dL [facility] 2 Performing Organization Address [facility] [address] [facility] Phone Number MISYS [facility] * ELECTROLYTES (10/30/2017 10:33 AM) Sodium 138 136 - 145 mmol/L [facility] 2 Potassium 4.3 3.50 - 5.10 mmol/L [facility] 2 Chloride 107 98 - 107 mmol/L [facility] 2 CO2 24.2 21 - 32 mmol/L [facility] 2 Anion Gap 6.8 [facility] 2 Performing Organization Address [facility] [address] [facility] Phone Number MISYS [facility] * CALCIUM, IONIZED (10/30/2017 10:33 AM) Only the most recent of 2 results within the time period is included. Calcium, Ionized 1.38 (H) 1.15 - 1.29 mmol/L [facility] 2 Performing Organization Address [facility] [address]/[facility] Phone Number MISYS [facility] * GLUCOSE (10/30/2017 10:33 AM) Only the most recent of 2 results within the time period is included. Glucose 143 (H) 70 - 99 mg/dL [facility] 2 Performing Organization Address City/[facility] [address]/[facility] Phone Number MISYS [facility] * BLOOD GAS, AYAAN (10/30/2017 10:33 AM) Only the most recent of 2 results within the time period is included. Temperature 37.0 degree C [facility] 2 pH, Ayaan 7.30 (L) 7.33 - 7.43 [facility] 2 pCO2, Ayaan 50.8 (H) 38.0 - 50.0 mm Hg [facility] 2 pO2, Ayaan 72.7 50 - 75 mm Hg [facility] 2 Base Excess, Ayaan NEG1 mmol/L [facility] 2 HCO3, Ayaan 24.2 22.0 - 26.0 mmol/L [facility] 2 % Sat, Venous 93 (H) 60 - 85 % [facility] 2 Performing Organization Address City/[facility] [address]/[facility] Phone Number MISYS [facility] * VENOUS HEMOGLOBIN (10/30/2017 9:32 AM) Venous Hemoglobin 12.7 (L) 14.0 - 18.0 g/dL [facility] 2 Performing Organization Address City/[facility] [address]/[facility] Phone Number [facility] * SODIUM (10/30/2017 9:32 AM) Sodium 137 136 - 145 mmol/L [facility] 2 Performing Organization Address City/[facility] [address]/[facility] Phone Number [facility] * POTASSIUM (10/30/2017 9:32 AM) Potassium 4.2 3.50 - 5.10 mmol/L [facility] 2 Performing Organization Address City/[facility] [address] [facility] Phone Number MISYS [facility] * CHLORIDE (10/30/2017 9:32 AM) Chloride 106 98 - 107 mmol/L [facility] 2 Performing Organization Address City/[facility] [address] [facility] Phone Number [facility] * PT/INR (10/03/2017 10:45 AM) PT 13.7 11.8 - 15.0 Seconds [facility] 1 INR 1.1 [facility] 1 SUGGESTED THERAPEUTIC RANGES: INR 2.0-3.0 for MODERATE INTENSITY ANTICOAGULATION INR 2.5-3.5 for HIGH INTENSITY ANTICOAGULATION Specimen Blood Performing Organization Address City/[facility] [address]/[facility] Phone Number [facility] * 12 LEAD EKG (08/24/2017 1:31 PM) 12 LEAD EKG FOR [facility] Test Date:2017-08-24 Pat Name: KRISTIN HEIN Department: Room: RED Gender: M 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 Requested By: Order Number: R cody JAMA: Shaheen GRULLON Measurements Intervals [place] Rate: 63 P:46 TX: 150 QRS: -37 QRSD: 96 T:41 QT: 404 QTc:413 Interpretive Statements Normal sinus rhythm Left axis deviation POOR R WAVE PROGRESSION ABNORMAL EKG Electronically Signed On 08-24-17 15:21:48 BRANCH OPERATIONS MANAGER by Shaheen GRULLON Performing Organization Address City/[facility] [address]/Zipcode Phone Number SMS * XRAY CHEST 2 VIEWS (08/24/2017 1:28 PM) Impressions Performed At IMPRESSION: SMS No acute cardiac or pulmonary pathology is identified in the chest. Signed By: Pasquale Pat MD, 08/27/2017 8:01 AM Narrative Performed At EXAM: XR CHEST [address] [facility] DATE:08/24/2017 1:21 PM INDICATION: Medical clearance Bilateral hip pain COMPARISON: None similar. TECHNIQUE: PA and lateral views DISCUSSION: Lines/tubes/devices: None. Heart and mediastinum: The cardiac silhouette is within normal limits in its transverse diameter with a fat pad along the left cardiac border. The thoracic aorta is tortuous. Lungs and pleura: There is hyperinflation of the lung odell. The lung odell are clear of consolidation or effusion. Pulmonary vascularity is normal. Bones/soft tissues: The bony structures are intact. Upper abdomen: Unremarkable Procedure Note Interface, Rad/Mammog In - 08/27/2017 8:06 AM CDT EXAM: XR CHEST 2 VIEWS DATE: 08/24/2017 1:21 PM INDICATION: Medical clearance Bilateral hip pain COMPARISON: None similar. TECHNIQUE: PA and lateral views DISCUSSION: Lines/tubes/devices: None. Heart and mediastinum: The cardiac silhouette is within normal limits in its transverse diameter with a fat pad along the left cardiac border. The thoracic aorta is tortuous. Lungs and pleura: There is hyperinflation of the lung odell. The lung odell are clear of consolidation or effusion. Pulmonary vascularity is normal. Bones/soft tissues: The bony structures are intact. Upper abdomen: Unremarkable IMPRESSION IMPRESSION: No acute cardiac or pulmonary pathology is identified in the chest. Signed By: Pasquale Pat MD, 08/27/2017 8:01 AM Performing Organization Address City/State/Zipcode Phone Number SMS * XRAY SHOULDER 2 VIEWS MIN (08/13/2017 1:34 PM) Impressions Performed At IMPRESSION: SMS Mild degenerative changes of AC and glenohumeral joints. Hypertrophic changes of the greater tuberosity suggesting chronic rotator cuff degeneration. Signed By: Indio Richardson MD, 08/13/2017 1:52 PM Narrative Performed At EXAM: XR RIGHT SHOULDER [address] [facility] DATE:08/13/2017 1:34 PM INDICATION: ROTATOR CUFF TEAR COMPARISON: None available TECHNIQUE: Right shoulder - 3 views FINDINGS: No fracture, periosteal reaction, or erosions identified. Joint alignment is normal. Mild degenerative changes of the AC and glenohumeral joints noted. Hypertrophic changes of the greater tuberosity noted suggesting chronic rotator cuff degeneration. Soft tissues are unremarkable. Procedure Note Interface, Rad/Mammog In - 08/13/2017 1:57 PM BRANCH OPERATIONS MANAGER EXAM: XR RIGHT SHOULDER 3 VIEWS DATE: 08/13/2017 1:34 PM INDICATION: ROTATOR CUFF TEAR COMPARISON: None available TECHNIQUE: Right shoulder - 3 views FINDINGS: No fracture, periosteal reaction, or erosions identified. Joint alignment is normal. Mild degenerative changes of the AC and glenohumeral joints noted. Hypertrophic changes of the greater tuberosity noted suggesting chronic rotator cuff degeneration. Soft tissues are unremarkable. IMPRESSION IMPRESSION: Mild degenerative changes of AC and glenohumeral joints. Hypertrophic changes of the greater tuberosity suggesting chronic rotator cuff degeneration. Signed By: Indio Richardson MD, 08/13/2017 1:52 PM Performing Organization Address City/State/Zipcode Phone Number SMS * XRAY CLAVICLE COMPLETE (08/13/2017 1:34 PM) Impressions Performed At IMPRESSION: SMS No fractures identified. Mild degenerative changes of the AC joint. Signed By: Indio Richardson MD, 08/13/2017 1:42 PM Narrative Performed At EXAM: XR RIGHT CLAVICLE [address] [facility] DATE:08/13/2017 1:34 PM INDICATION: ROTATOR CUFF TEAR COMPARISON: None available TECHNIQUE: AP and axial views of the right clavicle FINDINGS: No fracture, periosteal reaction, or erosions identified. Joint alignment is normal. Mild degenerative changes of AC joint noted. Soft tissues are unremarkable. Procedure Note Interface, Rad/Mammog In - 08/13/2017 1:47 PM BRANCH OPERATIONS MANAGER EXAM: XR RIGHT CLAVICLE 2 VIEWS DATE: 08/13/2017 1:34 PM INDICATION: ROTATOR CUFF TEAR COMPARISON: None available TECHNIQUE: AP and axial views of the right clavicle FINDINGS: No fracture, periosteal reaction, or erosions identified. Joint alignment is normal. Mild degenerative changes of AC joint noted. Soft tissues are unremarkable. IMPRESSION IMPRESSION: No fractures identified. Mild degenerative changes of the AC joint. Signed By: Indio Richardson MD, 08/13/2017 1:42 PM Performing Organization Address City/[facility] [address]/[facility] Phone Number SMS * OCCULT BLOOD ICT (08/13/2017 11:10 AM) Occult Blood ICT Positive (A) NEG [facility] Specimen Stool Performing Organization Address [facility] Phone Number ROJAS [facility] * WOUND STAIN / CULTURE (07/16/2017 9:58 AM) Spec Description Leg [facility] Order Comments None [facility] Gram Stain No organisms seen [facility] Culture 4+ Methicillin resistant [facility] Staphylococcus aureus isolated Report Status Final 07/18/2017 [facility] Organism 4+ Methicillin resistant [facility] Staphylococcus aureus isolated Method LEWIS [facility] Clindamycin <=0.5 Susceptible [facility] Erythromycin <=0.5 Susceptible [facility] Levofloxacin <=1 Susceptible [facility] Oxacillin >2 Resistant [facility] Penicillin G >1 Resistant [facility] Rifampin <=0.5 Susceptible [facility] Tetracycline <=0.5 Susceptible [facility] Trimeth-sulfamethox <=0.5/9.5 Susceptible [facility] Vancomycin 1 Susceptible [facility] Specimen Wound abscess - LEG Performing Organization Address [facility] Phone Number [facility] * U/S EXTREMITY NONVASCULAR, LIMITED (07/10/2017 2:39 PM) Impressions Performed At IMPRESSION: SMS Small fat-containing right inguinal hernia. This [facility] radiology report is a preliminary resident dictation until finalized by an attending.Changes to this preliminary report may occur in an additional preliminary or finalized version. Dictated By: Dangelo Ferrell MD, 07/10/2017 3:34 PM I have reviewed the study and agree with the findings in this report. Signed By: Jovany Navarrete MD, 07/10/2017 4:21 PM Narrative Performed At EXAM: US BILATERAL INGUINAL ULTRASOUND SMS DATE: 07/10/2017 2:39 PM INDICATION: Right Inguinal pain ADDITIONAL INFORMATION: None. COMPARISON: CT abdomen pelvis with contrast on 02/04/2014. TECHNIQUE: Multiplanar grayscale and color Doppler ultrasound of the bilateral inguinal region. FINDINGS: There is a small fat-containing right inguinal hernia. No inguinal hernia seen on the left. A mesh is seen in the left inguinal region, provider service representative of status post hernia repair. Procedure Note Interface, Rad/Mammog In - 07/10/2017 4:26 PM BRANCH OPERATIONS MANAGER EXAM: US BILATERAL INGUINAL ULTRASOUND DATE: 07/10/2017 2:39 PM INDICATION: Right Inguinal pain ADDITIONAL INFORMATION: None. COMPARISON: CT abdomen pelvis with contrast on 02/04/2014. TECHNIQUE: Multiplanar grayscale and color Doppler ultrasound of the bilateral inguinal region. FINDINGS: There is a small fat-containing right inguinal hernia. No inguinal hernia seen on the left. A mesh is seen in the left inguinal region, provider service representative of status post hernia repair. IMPRESSION IMPRESSION: Small fat-containing right inguinal hernia. This [facility] radiology report is a preliminary resident dictation until finalized by an attending. Changes to this preliminary report may occur in an additional preliminary or finalized version. Dictated By: Dangelo Ferrell MD, 07/10/2017 3:34 PM I have reviewed the study and agree with the findings in this report. Signed By: Jovany Navarrete MD, 07/10/2017 4:21 PM Performing Organization Address [facility] Phone Number SMS * LIVER PROFILE (05/28/2017 8:46 AM) T Protein 8.0 6.4 - 8.2 g/dL [facility] 3 Albumin 4.6 3.4 - 5.0 g/dL [facility] 3 T Bilirubin 1.3 (H) 0.2 - 1.0 mg/dL [facility] 3 Alk Phos 67 45 - 117 U/L [facility] 3 AST 14 (L) 15 - 37 U/L [facility] 3 ALT 28 12 - 78 U/L [facility] 3 D Bilirubin 0.2 0.0 - 0.2 mg/dL [facility] 3 Specimen Blood Performing Organization Address [facility] Phone Number MISYS [facility] * HEPATITIS PANEL (05/28/2017 8:46 AM) HCV IgG Negative NEG [facility] 3 HBsAg Negative NEG [facility] 3 HAV, IgM Negative NEG [facility] 3 HBcAb, IgM Negative NEG [facility] 3 Specimen Blood Performing Organization Address [facility] Phone Number MISYS [facility] 3 after 04/01/2017
--- OUTSIDE RECORDS SUMMARY | 2018-04-02 14:31 | XMS REPORT ---
Author Author [facility] Address Unknown Phone Unavailable Care Team Providers Care Home Care Companion Name Role Phone SHERRY STOKES Unavailable Unavailable PADILLA LUNA Unavailable Unavailable Problems This patient has no known problems. Allergies, Adverse Reactions, Alerts This patient has no known allergies or adverse reactions. Medications This patient has no known medications. Encounters Start Date/Time End Date/Time Encounter Type Admission Type Attending [facility] Care Department Encounter ID 2018-01-10 00:00:00 Inpatient [facility] [id number] 2017-10-31 19:29:08 Inpatient [facility] [id number] 2017-10-30 21:55:53 Inpatient [facility] [id number] 2017-10-30 12:43:50 Inpatient [facility] [id number] 2017-10-30 12:01:45 Inpatient [facility] [id number] 2017-10-30 09:43:09 Inpatient [facility] [id number] 2017-10-30 08:12:33 Inpatient [facility] [id number] 2017-10-30 05:32:00 Inpatient [facility] [id number] 2017-10-23 06:25:00 Inpatient [facility] [id number] 2017-10-05 00:00:00 Inpatient [facility] [id number] 2017-10-03 00:00:00 Inpatient [facility] [id number] 2018-06-13 00:00:00 2018-06-13 00:00:00 Outpatient [facility] [id number] 2018-03-28 00:00:00 2018-03-28 00:00:00 Outpatient [facility] [id number] 2018-03-17 00:00:00 2018-03-17 00:00:00 Outpatient [facility] [id number] 2018-03-14 00:00:00 2018-03-14 00:00:00 Outpatient [facility] [id number] 2018-02-13 07:30:01 2018-02-13 07:30:01 Outpatient [facility] [id number] 2018-02-13 00:00:00 2018-02-13 00:00:00 Outpatient [facility] [id number] 2018-02-05 00:00:00 2018-02-05 00:00:00 Outpatient [facility] [id number] 2018-01-10 08:14:29 2018-01-10 08:14:29 Outpatient [facility] [id number] 2018-01-10 07:58:43 2018-01-10 07:58:43 Outpatient [facility] [id number] 2018-01-10 00:00:00 2018-01-10 00:00:00 Outpatient [facility] [id number] 2017-12-20 00:00:00 2017-12-20 00:00:00 Outpatient [facility] [id number] 2017-12-14 00:00:00 2017-12-14 00:00:00 Outpatient [facility] [id number] 2017-12-10 09:32:05 2017-12-10 09:32:05 Outpatient [facility] [id number] 2017-12-10 09:29:06 2017-12-10 09:29:06 Outpatient [facility] [id number] 2017-11-28 00:00:00 2017-11-28 00:00:00 Outpatient [facility] [id number] 2017-11-14 12:17:28 2017-11-14 12:17:28 Outpatient [facility] [id number] 2017-11-14 09:47:19 2017-11-14 09:47:19 Outpatient [facility] [id number] 2017-11-14 09:05:23 2017-11-14 09:05:23 Outpatient [facility] [id number] 2017-11-07 19:09:48 2017-11-07 19:09:48 Emergency [facility] [id number] 2017-11-07 16:33:11 2017-11-07 16:33:11 Emergency [facility] [id number] 2017-10-03 10:06:22 2017-10-03 10:06:22 Outpatient [facility] [id number] 2017-09-18 00:00:00 2017-09-18 00:00:00 Outpatient [facility] [id number] 2017-08-27 08:15:11 2017-08-27 08:15:11 Outpatient [facility] [id number] 2017-08-27 07:40:25 2017-08-27 07:40:25 Outpatient [facility] [id number] 2017-08-24 13:16:16 2017-08-24 13:16:16 Outpatient [facility] [id number] 2017-08-24 11:18:08 2017-08-24 11:18:08 Outpatient [facility] [id number] 2017-08-13 13:07:25 2017-08-13 13:07:25 Outpatient [facility] [id number] 2017-08-13 12:59:09 2017-08-13 12:59:09 Outpatient [facility] [id number] 2017-08-13 11:09:40 2017-08-13 11:09:40 Outpatient [facility] [id number] 2017-08-13 00:00:00 2017-08-13 00:00:00 Outpatient [facility] [id number] 2017-08-06 00:00:00 2017-08-06 00:00:00 Outpatient [facility] [id number] 2017-07-31 10:54:48 2017-07-31 10:54:48 Outpatient [facility] [id number] 2017-07-25 07:42:36 2017-07-25 07:42:36 Outpatient [facility] [id number] 2017-07-20 07:52:35 2017-07-20 07:52:35 Outpatient [facility] [id number] 2017-07-18 07:43:54 2017-07-18 07:43:54 Outpatient [facility] [id number] 2017-07-16 08:20:17 2017-07-16 08:20:17 Outpatient [facility] [id number] 2017-07-10 14:10:47 2017-07-10 14:10:47 Outpatient [facility] [id number] Results Test Description Test Time Test Comments Text Results Atomic Results Result Comments PELVIS AP 1-2 VIEWS 2018-04-02 10:10:00 [place] [address] Patient Name: KRISTIN HIEN MR #: [id number] : 1955 Age/Sex: 62/M Req #: [id number] Adm Physician: Ordered by: SHERRY STOKES MD Report #: [id number] Location: OR Room/Bed: Procedure: [id number] DX/PELVIS AP 1-2 VIEWS Exam Date: 04/02/18 Exam Time: 09 REPORT STATUS: Signed PROCEDURE: X-RAY PELVIS, AP VIEW COMPARISON: None. INDICATIONS: POST LEFT HIP SURGERY FINDINGS: Status post bilateral total hip arthroplasties. Hardware appears intact. No evidence of fracture or malalignment on frontal view. Recent post operative changes in the left hip with superficial and deep gas. CONCLUSION: Post operative changes status post recent left hip arthroplasty and prior right hip arthroplasty as above. Intact hardware without evidence of malalignment. Dictated by: WARD TAYLOR M.D. on 04/02/2018 at 10:10 Electronically approved by: WARD TAYLOR M.D. on 04/02/2018 at 10:10 Dictated By: WARD TAYLOR MD [id number] Transcribed By: BRIEN on 04/02/18 1010 COPY TO: SHERRY STOKES MD CHEST 2 VIEWS 2018-04-01 07:37:00 [place] [address] Patient Name: KRISTIN HEIN MR #: [id number] : 1955 Age/Sex: 62/M Req #: [id number] Adm Physician: Ordered by: PADILLA LUNA MD Report #: [id number] Location: [facility] Room/Bed: Procedure: [id number] DX/CHEST 2 VIEWS Exam Date: 04/01/18 Exam Time: 0705 REPORT STATUS: Signed PROCEDURE: X-RAY CHEST, TWO VIEWS COMPARISON: None. INDICATIONS: PREOP LEFT HIP FINDINGS: The lungs are well-inflated. Linear opacity in the left lung base may reflect chronic change or subsegmental atelectasis. No consolidation, pleural effusion, or pneumothorax. Tortuosity and atherosclerotic calcification of the thoracic aorta with otherwise normal cardiomediastinal contour. No overt pulmonary edema. No acute osseous abnormality. CONCLUSION: Linear atelectasis or fibrotic change in the left lung base. Otherwise no acute cardiopulmonary abnormality. Dictated by: Sherry Mcmahon M.D. on 04/01/2018 at 7:37 Electronically approved by: Sherry Mcmahon M.D. on 04/01/2018 at 7:37 Dictated By: SHERRY MCMAHON MD Transcribed By: BRIEN on 04/01/1837 COPY TO: PADILLA LUNA MD
--- OUTSIDE RECORDS SUMMARY | 2018-04-02 14:46 | XMS REPORT | Clinical Summary ---
Author Author [facility] Organization [facility] Address Unknown Phone Unavailable Care Team Providers Care Surveying Or Spatial Science Technician Name Role Phone Albert Sherman MD PCP [...] Overview: Added automatically from request for surgery [id number] Impaired functional mobility, balance, gait, and endurance 11/14/2017 S/P total hip arthroplasty 10/31/2017 Hip osteoarthritis 08/27/2017 Overview: Added automatically from request for surgery [id number] Arthritis of both hips 08/13/2017 Chronic right [...] Dx); Arthritis of both hips 12/11/2017 Refill [facility] Albert Sherman MD Uncontrolled hypertension 12/10/2017 Hospital [...] Purvis MD replacement of right hip 11/14/2017 [facility] Radiology Keith Purvis MD Status post total Encounter replacement of right hip 11/07/2017 Emergency Emergency Medicine Blaine Nur MD Leg swelling (Primary Dx) 11/07/2017 Nurse Triage Tracy Hein RN 11/06/2017 Pharmacy Visit 11/05/2017 Pharmacy Visit 11/02/2017 Pharmacy Visit 11/01/2017 Pharmacy Visit 10/31/2017 Pharmacy Visit 10/30/2017 [facility] Addie Kate MD Primary osteoarthritis of - Encounter right hip (Primary Dx); 11/01/2017 Osteoarthritis of right hip, unspecified osteoarthritis type; Status post total replacement of right hip 10/30/2017 Procedure Pass 10/30/2017 Surgery Addie Kate MD ORTHO - REPLACEMENT, TOTAL HIP 10/23/2017 Hospital Keith Purvis MD Encounter 10/23/2017 Telephone Orthopedics Brandon Puente, Appointment Related ResidentMD Questions 10/23/2017 Procedure Pass 10/03/2017 [facility] Anesthesiology Karma Gleason, ERASMO Encounter 10/03/2017 Anesthesia Karma Gleason, ERASMO Event 09/18/2017 Nutrition Nutrition Kristel Peter 09/07/2017 Refill [facility] Albert Sherman MD Uncontrolled hypertension 08/27/2017 [facility] Radiology Patrice Anand MD Encounter 08/27/2017 Office Visit Orthopedics Keith Purvis MD Arthritis of both hips (Primary Dx) 08/24/2017 Ancillary Radiology Albert Sherman MD Procedure 08/24/2017 Office Visit [facility] Albert Sherman MD Bilateral hip pain (Primary Dx) 08/20/2017 Refill [facility] Albert Sherman MD Left hip pain 08/17/2017 Orders Only [facility] Albert Sherman MD Occult blood positive stool (Primary Dx) 08/15/2017 Pharmacy Visit 08/13/2017 Office Visit Orthopedics Keith Purvis MD Arthritis of both hips (Primary Dx) 08/13/2017 Lab Appointment Lab Albert Sherman MD Screening for condition 08/13/2017 [facility] Radiology Albert Sherman MD Chronic right shoulder Encounter pain; Pain of left hip joint 07/31/2017 Office Visit General Surgery Melissa Cisse NP Right inguinal hernia (Primary Dx) 07/25/2017 Office Visit [facility] Lopez Christopher MD Cellulitis and abscess of left leg (Primary Dx) 07/20/2017 Office Visit [facility] Lopez Christopher MD Colon cancer screening (Primary Dx) 07/18/2017 Office Visit [facility] Lopez Christopher MD Cellulitis and abscess of leg, except foot (Primary Dx) 07/16/2017 Office Visit [facility] Lopez Christopher MD Inguinal hernia of right side without obstruction or gangrene (Primary Dx); Colon cancer screening; Cellulitis and abscess of leg, except foot 07/16/2017 Pharmacy Visit 07/10/2017 [facility] Radiology Albert Sherman MD Encounter 06/27/2017 Orders Only [facility] Albert Sherman MD ERRONEOUS ENCOUNTER--DISREGARD (Primary Dx) 06/15/2017 Refill [facility] Albert Sherman MD Uncontrolled hypertension 06/05/2017 Telephone [facility] Albert Sherman MD Other Follow-up 05/28/2017 Office Visit [facility] Albert Armendariz MD Right inguinal pain (Primary Dx); Left hip pain; Hypertriglyceridemia; Elevated bilirubin; Need for influenza vaccination; Need for omgpkppkqd-tyzquis-hoqxvx sis (Tdap) vaccine; Screening for condition after [...] 06/13/2018 Office Visit Gastroenterology Kalyn Auguste NP Ref#[id number] [address] [place] [address] [id number] Health Maintenance Due Date Last Done Comments Colorectal Cancer Scrn 08/13/2018 08/13/2017 Annual (FIT/FOBT) Age 50 to 75 Implants Implanted Type Area Fraud Representative Device Expiration Model / Identifier Date Serial / Lot Bone Screw 6.5mm Diameter 25mm Right: Helga Epiphyte 08/16/2027 Length Hip(s) / Implanted: Qty: 1 on 10/30/2017 by / Addie Kate MD [id number] Taperloc Complete Primary Femoral Right: Biomet Epiphyte 05/05/2027 [id number] Porous Coated Stem Reduced Distal Hip(s) / [id number] Standard Offset Type 1 / Taper [id number] Implanted: Qty: 1 on 10/30/2017 by Addie Kate MD G7 Osseoti Acetabular Shell 4 Hole Right: Biomet Epiphyte 10/27/2025 [id number] Shell Size 64mm Liner Size H Hip(s) / Implanted: Qty: 1 on 10/30/2017 by / Addie Kate MD [id number] Acetabular Liner Neutral Arcomxl Right: Biomet Epiphyte 12/16/2019 [id number] Highly Crosslinked Head Size 40mm Hip(s) / Liner Size H / Implanted: Qty: 1 on 10/30/2017 by [id number] Addie Kate MD G7 Acetabular Liner Neutral E1 Head Right: Biomet Epiphyte 05/21/2022 [id number] Size 36mmm Liner H Hip(s) / Implanted: Qty: 1 on 10/30/2017 by / Addie Kate MD [id number] Modular Head Component +3mm Neck Right: BiomTweetMeme 08/11/2027 [id number] 36mm Type 1 Taper Hip(s) / Implanted: Qty: 1 on 10/30/2017 by / Addie Kate MD [id number] Procedures Procedure Name Priority Date/Time Associated Diagnosis [...] CDT procedure are in the results section. PHOTOENGRAVER Routine 10/30/2017 6:23 PM CDT CONSULT CLINICAL CASE Routine 10/30/2017 MANAGEMENT (RN/SW) 3:46 PM CDT CONSULT CLINICAL CASE Routine 10/30/2017 MANAGEMENT (RN/SW) 3:45 PM CDT PHOTOENGRAVER Routine 10/30/2017 3:45 PM CDT IP CONSULT [...] hip pain Results for this 1:31 PM DECATOR OPERATOR procedure are in the results section. XRAY CHEST 2 VIEWS Routine 08/24/2017 Bilateral hip pain Results for this 1:28 PM DECATOR OPERATOR procedure are in the results section. XRAY HIP UNILATERAL 2/3 Routine 08/13/2017 Pain of left hip joint Results for this VIEWS 1:34 PM DECATOR OPERATOR procedure are in the results section. XRAY CLAVICLE COMPLETE Routine 08/13/2017 Chronic right shoulder Results for this 1:34 PM DECATOR OPERATOR pain procedure are in the results section. XRAY SHOULDER 2 VIEWS MIN Routine 08/13/2017 Chronic right shoulder Results for this 1:34 PM DECATOR OPERATOR pain procedure are in the results section. OCCULT BLOOD ICT Routine 08/13/2017 Screening for condition Results for this 11:10 AM DECATOR OPERATOR procedure are in the results section. HEMOCCULT KIT FOR Routine 07/20/2017 Colon cancer screening SPECIMEN COLLECTION AT 8:14 AM DECATOR OPERATOR HOME WOUND STAIN / CULTURE Routine 07/16/2017 Cellulitis and abscess of Results for this 9:58 AM DECATOR OPERATOR leg, except foot procedure are in the results section. HEMOCCULT KIT FOR Routine 07/16/2017 Colon cancer screening SPECIMEN COLLECTION AT 9:13 AM DECATOR OPERATOR HOME U/S EXTREMITY Routine 07/10/2017 Right inguinal pain Results for this NONVASCULAR, LIMITED 2:39 PM DECATOR OPERATOR procedure are in the results section. HEPATITIS PANEL Routine 05/28/2017 Elevated bilirubin Results for this 8:46 AM DECATOR OPERATOR procedure are in the results section. LIVER PROFILE Routine 05/28/2017 Elevated bilirubin Results for this 8:46 AM DECATOR OPERATOR procedure are in the results section. HEMOCCULT KIT FOR Routine 05/28/2017 Screening for condition SPECIMEN COLLECTION AT 8:19 AM DECATOR OPERATOR HOME after 04/01/2017 Results * XRAY HIP BILATERAL 2 VIEWS AND AP PELVIS (01/10/2018 8:23 AM) Only the most recent of 2 results within the time period is included. Impressions Performed At IMPRESSION: SMS 1.Unchanged satisfactory appearance of the right total hip arthroplasty without evidence of hardware complication. 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 This [facility] radiology report is a preliminary resident dictation [...] necrosis of the left hip, unchanged. This [facility] radiology report is a preliminary resident dictation [...] Narrative Performed At EXAM: XRHIP 3 VIEWS [facility] DATE:12/10/2017 9:42 AM INDICATION: Pain COMPARISON: 11/14/2014 [...] MD, 12/10/2017 11:03 AM Performing Organization Address [facility] Phone Number SMS * VBG POC (11/07/2017 9:20 PM) Only the most recent of 2 results within the time period is included. pH, Ayaan POC 7.59 (H)Comment: Physician 7.33 - 7.43 [facility] MAIN-STATION 1 Notified pCO2, Ayaan POC 29.0 (L) 38.0 - 50.0 mm Hg [facility] MAIN-STATION 1 pO2, Ayaan POC 29 (L) 50 - 75 mm Hg [facility] MAIN-STATION 1 Base Excess, Ayaan POC 6 mmol/L [facility] MAIN-STATION 1 HCO3, Ayaan POC 28.0 (H) 22.0 - 26.0 mmol/L [facility] MAIN-STATION 1 % Sat, Ayaan POC 67 60 - 85 % [facility] MAIN-STATION 1 Lactic Acid, Ayaan POC 0.96 0.4 - 2.0 mmol/L [facility] MAIN-STATION 1 TCO2, AYAAN POC 29 21 - 32 mmol/L [facility] MAIN-STATION 1 Performing Organization Address [facility] Phone Number MISYS [facility] MAIN-STATION 1 * BMP POC (11/07/2017 9:19 PM) Only the most recent of 2 results within the time period is included. CO2 POC 27Comment: Physician Notified 21 - 32 mmol/L [facility] MAIN-STATION 1 Chloride POC 98 98 - 107 mmol/L [facility] MAIN-STATION 1 Potassium POC 3.9 3.50 - 5.10 mmol/L [facility] MAIN-STATION 1 Sodium POC 137 136 - 145 mmol/L [facility] MAIN-STATION 1 Glucose POC 114 (H) 74 - 106 mg/dL [facility] MAIN-STATION 1 Urea Nitrogen POC 24 (H) 7 - 18 mg/dL [facility] MAIN-STATION 1 Creatinine POC 1.3 0.6 - 1.3 mg/dL [facility] MAIN-STATION 1 Calcium Ionized POC 1.16 1.15 - 1.29 mmol/L [facility] MAIN-STATION 1 Hemoglobin POC 8.2 (L) 14.0 - 18.0 g/dL [facility] MAIN-STATION 1 Hematocrit POC 24.0 (L) 40.0 - 54.0 % [facility] MAIN-STATION 1 GFR, Estimated 56 mL/min/1.73 m2 [facility] MAIN-STATION 1 GFR, Estim, Afr-Am >60 mL/min/1.73 m2 [facility] MAIN-STATION 1 Performing Organization Address City/State/Zipcode Phone Number MISYS [facility] MAIN-STATION 1 * DUPLEX DOPPLER LOWER EXTREMITY VENOUS, UNILATERAL OR LIMITED (11/07/2017 7:50 PM) Impressions Performed At IMPRESSION: SMS 1.No deep venous thrombosis (DVT). This [facility] radiology report is a preliminary resident dictation [...] 1. No deep venous thrombosis (DVT). This [facility] radiology report is a preliminary resident dictation [...] MAIN-STATION 2 Specimen Blood Performing Organization Address City/State/[facility] Phone Number MISVY [facility] MAIN-STATION 2 * 12 LEAD EKG (11/07/2017 4:27 PM) 12 LEAD EKG FOR [facility] Test Date:2017-11-07 Pat Name: KRISTIN HEIN Department: Room: Gender: M Family Consumer Science Fcs Teacher: [id number] :[id number] [phone] Requested By: Order Number: R cody JAMA: Thomas Bey Measurements Intervals [place] Rate: 76 P:34 MI: 148 QRS: -28 QRSD: 98 T:31 QT: 381 QTc:430 Interpretive Statements SINUS RHYTHM BORDERLINE LEFT AXIS DEVIATION NONSPECIFIC T-WAVE ABNORMALITY ABNORMAL EKG Electronically Signed On 11-07-17 17:18:46 CDT by Thomas Bey Performing Organization Address City/[facility] Phone Number [facility] * BASIC METABOLIC PANEL (10/31/2017 5:36 AM) Only the most recent of 2 results within the time period is included. CO2 24 21 - 32 mmol/L [facility] MAIN-STATION 4 Chloride 105 98 - 107 mmol/L [facility] MAIN-STATION 4 Potassium 4.4 3.50 - 5.10 mmol/L [facility] MAIN-STATION 4 Sodium 138 136 - 145 mmol/L [facility] MAIN-STATION 4 Glucose 128 (H) 70 - 99 mg/dL [facility] MAIN-STATION 4 Urea Nitrogen 26 (H) 7 - 18 mg/dL [facility] MAIN-STATION 4 Creatinine 1.13 0.60 - 1.30 mg/dL [facility] MAIN-STATION 4 Anion Gap 9 [facility] MAIN-STATION 4 Calcium 8.5 8.50 - 10.20 mg/dL [facility] MAIN-STATION 4 GFR, Estimated >60 mL/min/1.73 m2 [facility] MAIN-STATION 4 GFR, Estim, Afr-Am >60 mL/min/1.73 m2 [facility] MAIN-STATION 4 Specimen Blood Performing Organization Address City/State/Zipcode Phone Number ROJAS [facility] MAIN-STATION 4 * XRAY PELVIS 1 [...] Performed At EXAM: XR PELVIS 1 VIEW [facility] EXAM: XR PELVIS 1 VIEW DATE:10/30/2017 at [...] MD, 10/30/2017 1:55 PM Performing Organization Address City/[facility] Phone Number SMS * VENOUS CORD BLOOD HEMOGLOBIN (10/30/2017 10:33 AM) Cord Blood Hemoglobin 11.4 10.5 - 14.0 g/dL [facility] MAIN-STATION 2 Performing Organization Address [facility] Phone Number MISYS [facility] MAIN-STATION 2 * ELECTROLYTES (10/30/2017 10:33 AM) Sodium 138 136 - 145 mmol/L [facility] MAIN-STATION 2 Potassium 4.3 3.50 - 5.10 mmol/L [facility] MAIN-STATION 2 Chloride 107 98 - 107 mmol/L [facility] MAIN-STATION 2 CO2 24.2 21 - 32 mmol/L [facility] MAIN-STATION 2 Anion Gap 6.8 [facility] MAIN-STATION 2 Performing Organization Address [facility] Phone Number MISYS [facility] MAIN-STATION 2 * CALCIUM, IONIZED (10/30/2017 10:33 AM) Only the most recent of 2 results within the time period is included. Calcium, Ionized 1.38 (H) 1.15 - 1.29 mmol/L [facility] MAIN-STATION 2 Performing Organization Address [facility] Phone Number MISYS [facility] MAIN-STATION 2 * GLUCOSE (10/30/2017 10:33 AM) Only the most recent of 2 results within the time period is included. Glucose 143 (H) 70 - 99 mg/dL [facility] MAIN-STATION 2 Performing Organization Address City/[facility] Phone Number MISYS [facility] MAIN-STATION 2 * BLOOD GAS, AYAAN (10/30/2017 10:33 AM) Only the most recent of 2 results within the time period is included. Temperature 37.0 degree C [facility] MAIN-STATION 2 pH, Ayaan 7.30 (L) 7.33 - 7.43 [facility] MAIN-STATION 2 pCO2, Ayaan 50.8 (H) 38.0 - 50.0 mm Hg [facility] MAIN-STATION 2 pO2, Ayaan 72.7 50 - 75 mm Hg [facility] MAIN-STATION 2 Base Excess, Ayaan NEG1 mmol/L [facility] MAIN-STATION 2 HCO3, Ayaan 24.2 22.0 - 26.0 mmol/L [facility] MAIN-STATION 2 % Sat, Venous 93 (H) 60 - 85 % [facility] MAIN-STATION 2 Performing Organization Address City/[facility] Phone Number MISYS [facility] MAIN-STATION 2 * VENOUS HEMOGLOBIN (10/30/2017 9:32 AM) Venous Hemoglobin 12.7 (L) 14.0 - 18.0 g/dL [facility] MAIN-STATION 2 Performing Organization Address City/[facility] Phone Number [facility] MAIN-STATION 2 * SODIUM (10/30/2017 9:32 AM) Sodium 137 136 - 145 mmol/L [facility] MAIN-STATION 2 Performing Organization Address City/[facility] Phone Number [facility] MAIN-STATION 2 * POTASSIUM (10/30/2017 9:32 AM) Potassium 4.2 3.50 - 5.10 mmol/L [facility] MAIN-STATION 2 Performing Organization Address City/[facility] Phone Number MISYS [facility] MAIN-STATION 2 * CHLORIDE (10/30/2017 9:32 AM) Chloride 106 98 - 107 mmol/L [facility] MAIN-STATION 2 Performing Organization Address City/[facility] Phone Number [facility] MAIN-STATION 2 * PT/INR (10/03/2017 10:45 AM) PT 13.7 11.8 - 15.0 Seconds [facility] MAIN-STATION 1 INR 1.1 [facility] MAIN-STATION 1 SUGGESTED THERAPEUTIC RANGES: INR 2.0-3.0 for MODERATE INTENSITY ANTICOAGULATION INR 2.5-3.5 for HIGH INTENSITY ANTICOAGULATION Specimen Blood Performing Organization Address City/[facility] Phone Number [facility] MAIN-STATION 1 * 12 LEAD EKG (08/24/2017 1:31 PM) 12 LEAD EKG FOR [facility] Test Date:2017-08-24 Pat Name: KRISTIN HEIN Department: Room: RED Gender: M Family Consumer Science Fcs Teacher: [id number] :[id number] -14 Requested By: Order Number: R cody JAMA: Shaheen GRULLON Measurements Intervals [place] Rate: 63 P:46 MI: 150 QRS: -37 QRSD: 96 T:41 QT: 404 QTc:413 Interpretive Statements Normal sinus rhythm Left axis deviation POOR R WAVE PROGRESSION ABNORMAL EKG Electronically Signed On 08-24-17 15:21:48 DECATOR OPERATOR by Shaheen GRULLON Performing Organization Address City/[facility]/Zipcode Phone Number SMS * XRAY CHEST 2 VIEWS (08/24/2017 1:28 PM) Impressions Performed At IMPRESSION: SMS No acute cardiac or pulmonary pathology is identified in the chest. Signed By: Pasquale Pat MD, 08/27/2017 8:01 AM Narrative Performed At EXAM: XR CHEST 2 VIEWS [facility] DATE:08/24/2017 1:21 PM INDICATION: Medical clearance Bilateral [...] At EXAM: XR RIGHT SHOULDER 3 VIEWS [facility] DATE:08/13/2017 1:34 PM INDICATION: ROTATOR CUFF TEAR COMPARISON: None available TECHNIQUE: Right shoulder - 3 views FINDINGS: No fracture, periosteal reaction, or erosions identified. Joint alignment is normal. Mild degenerative changes of the AC and glenohumeral joints noted. Hypertrophic changes of the greater tuberosity noted suggesting chronic rotator cuff degeneration. Soft tissues are unremarkable. Procedure Note Interface, Rad/Mammog In - 08/13/2017 1:57 PM DECATOR OPERATOR EXAM: XR RIGHT SHOULDER 3 VIEWS DATE: [...] At EXAM: XR RIGHT CLAVICLE 2 VIEWS [facility] DATE:08/13/2017 1:34 PM INDICATION: ROTATOR CUFF TEAR COMPARISON: None available TECHNIQUE: AP and axial views of the right clavicle FINDINGS: No fracture, periosteal reaction, or erosions identified. Joint alignment is normal. Mild degenerative changes of AC joint noted. Soft tissues are unremarkable. Procedure Note Interface, Rad/Mammog In - 08/13/2017 1:47 PM DECATOR OPERATOR EXAM: XR RIGHT CLAVICLE 2 VIEWS DATE: [...] MD, 08/13/2017 1:42 PM Performing Organization Address City/[facility] Phone Number SMS * OCCULT BLOOD ICT (08/13/2017 11:10 AM) Occult Blood ICT Positive (A) NEG [facility] Specimen Stool Performing Organization Address [facility] Phone Number ROJAS [facility] * WOUND STAIN / CULTURE (07/16/2017 9:58 AM) Spec Description Leg MUSE LAB Order Comments None MUSE LAB Gram Stain No organisms seen BT [...] Wound abscess - LEG Performing Organization Address [facility] Phone Number [facility] BT MICROBIOLOGY * U/S EXTREMITY NONVASCULAR, LIMITED (07/10/2017 2:39 PM) Impressions Performed At IMPRESSION: SMS Small fat-containing right inguinal hernia. This [facility] radiology report is a preliminary resident dictation [...] is seen in the left inguinal region, patient account representative of status post hernia repair. Procedure Note Interface, Rad/Mammog In - 07/10/2017 4:26 PM DECATOR OPERATOR EXAM: US BILATERAL INGUINAL ULTRASOUND DATE: 07/10/2017 2:39 PM INDICATION: Right Inguinal pain ADDITIONAL INFORMATION: None. COMPARISON: CT abdomen pelvis with contrast on 02/04/2014. TECHNIQUE: Multiplanar grayscale and color Doppler ultrasound of the bilateral inguinal region. FINDINGS: There is a small fat-containing right inguinal hernia. No inguinal hernia seen on the left. A mesh is seen in the left inguinal region, patient account representative of status post hernia repair. IMPRESSION IMPRESSION: Small fat-containing right inguinal hernia. This [facility] radiology report is a preliminary resident dictation until finalized by an attending. Changes to this preliminary report may occur in an additional preliminary or finalized version. Dictated By: Dangelo Ferrell MD, 07/10/2017 3:34 PM I have reviewed the study and agree with the findings in this report. Signed By: Jovany Navarrete MD, 07/10/2017 4:21 PM Performing Organization Address [facility] Phone Number SMS * LIVER PROFILE (05/28/2017 [...] MAIN-STATION 3 Specimen Blood Performing Organization Address [facility] Phone Number MISYS BT MAIN-STATION 3 * HEPATITIS PANEL (05/28/2017 8:46 AM) HCV IgG Negative NEG BT MAIN-STATION 3 HBsAg Negative NEG BT MAIN-STATION 3 HAV, IgM Negative NEG BT MAIN-STATION 3 HBcAb, IgM Negative NEG BT MAIN-STATION 3 Specimen Blood Performing Organization Address [facility] Phone Number MISYS BT MAIN-STATION 3 after 04/01/2017
[2018-04-02] MEDS: ENALAPRIL MALEATE 10 MG TAB PO SCH (16:43)
[2018-04-02] MEDS ORDERED: NON-FORMULARY MEDICATION (Enalapril Maleate 20 MG) PO SCH (17:00)
[2018-04-02] MEDS ORDERED: CELECOXIB 100 MG CAP PO SCH (17:00)
[2018-04-02] MEDS ORDERED: PROPOFOL IV EMULSION 10 MG/ML 20 ML VIAL ONE (17:12)
[2018-04-02] MEDS ORDERED: LIDOCAINE HCL 2% LOCAL INJ 5 ML SDV VIAL INJ ONE (17:12)
[2018-04-02] MEDS: CELECOXIB 200 MG CAP PO SCH (17:17)
[2018-04-02] MEDS: ASPIRIN 325 MG TAB PO SCH (17:17)
[2018-04-02] MEDS: VANCOMYCIN 1GM/NS 250 ML 250 ML IV SCH (17:31)
[2018-04-02] MEDS ORDERED: MIDAZOLAM HCL 2 MG/2 ML VIAL ONE (17:32)
[2018-04-02] MEDS ORDERED: FENTANYL CITRATE/PF 100MCG/2 ML INJ ONE (17:32)
[2018-04-02] MEDS ORDERED: ZOLPIDEM TARTRATE 5 MG TAB PO PRN (21:00)
[2018-04-03] VITALS: BP 101/59
[2018-04-03] MEDS: ACETAMINOPHEN 1000 MG/100 ML IV SCH ×2 (00:33→05:21)
[2018-04-03 04:00] VITALS: BP 111/63
[2018-04-03] MEDS: VANCOMYCIN 1GM/NS 250 ML 250 ML IV SCH (05:20)
[2018-04-03] MEDS: SODIUM CHLORIDE 0.9% 1000ML 1,000 ML IV SCH (05:21)
[2018-04-03 05:36] LABS: HEMATOCRIT 34.9 % (38.2-49.6); HEMOGLOBIN 12.1 g/dL (14.0-18.0)
[2018-04-03 07:39] VITALS: BP 118/69
[2018-04-03] MEDS: ENALAPRIL MALEATE 10 MG TAB PO SCH (08:43)
[2018-04-03] MEDS: CELECOXIB 200 MG CAP PO SCH (08:43)
[2018-04-03] MEDS: ASPIRIN 325 MG TAB PO SCH (08:43)
[2018-04-03] MEDS ORDERED: HYDROCHLOROTHIAZIDE 25 MG TAB PO SCH (09:00)
[2018-04-03] MEDS ORDERED: ACETAMINOPHEN 1000 MG/100 ML IV PRN (09:45)
[2018-04-03] MEDS ORDERED: INFLUENZA VIRUS VAC SPLIT INJ 0.5 ML SYR IM ONE (11:00)
[2018-04-03 12:02] VITALS: BP 100/57
--- NOTE | 2018-06-12 17:04 | Discharge Summary ---
CHIEF COMPLAINT: Left hip pain. HISTORY OF PRESENT ILLNESS: Patient is a 62-year-old male who complains of left hip pain over the last year. He states it has gotten progressively worse over the last few months. He states it is difficult to walk because of the pain. X-rays are consistent with end-stage osteoarthritis of left hip. The risks and benefits of a left total hip replacement were explained. Patient states he understands and wishes proceed. HOSPITAL COURSE: The patient underwent a left total hip replacement without complications. He was then transferred to the recovery room and the floor in stable condition. He remained stable through his hospital stay. He progressed nicely with physical therapy. He was able to be discharged home on postop day 1. PRINCIPAL DIAGNOSIS: Osteoarthritis, left hip. PRINCIPAL PROCEDURE: Left total hip replacement. DISCHARGE INSTRUCTIONS: Patient was discharged home with home health and physical therapy arranged. He was to be weightbearing as tolerated with a rolling walker. He was to follow posterior precautions. He was instructed to resume his home medications as directed. He was to take aspirin twice a day for thromboprophylaxis. He will return to see us in roughly 8 to 10 days. Dictated by Jan Soto PA-C SHERRY STOKES MD Job#: [id number]
--- NOTE | 2018-06-15 12:01 | Consultation ---
DATE OF CONSULTATION: April 03, 2018 REASON FOR CONSULTATION: Postop medical management. HISTORY OF PRESENT ILLNESS: Patient is a 62-year-old gentleman who is status post left hip arthroplasty. Doing well postoperatively with good pain control. He denies any chest pain, fever, chills, nausea, vomiting, headache, shortness of breath, or dizziness on review of systems. PAST MEDICAL HISTORY: Significant for hypertension. MEDICATIONS: See MAR. ALLERGIES: PENICILLIN. SOCIAL HISTORY: Nonsmoker, nondrinker. FAMILY HISTORY: Noncontributory. PHYSICAL EXAMINATION VITAL SIGNS: Temperature 98.1, pulse 70, blood pressure 101/59, and sats 93%. GENERAL: No apparent distress. NECK: Supple. No lymphadenopathy. LUNGS: Clear to auscultation bilaterally. CARDIOVASCULAR: Regular rate and rhythm. ABDOMEN: Good bowel sounds, soft and nontender. EXTREMITIES: No clubbing or cyanosis. NEUROLOGIC: Nonfocal. ASSESSMENT AND PLAN 1. Anemia. We will check his CBC. 2. Hip pain. Continue physical therapy. 3. Hypertension. We will continue with his medications and monitoring the blood pressure. Please see the hospital chart for full details. Job#: [id number] STEPHANIE
== END 2018-04-03 12:24 | disposition home health service (06) | DRG 470 ==
LOC: OR 05:24 → PACU V 09:34 → MED/SURG 10:35
PROVIDERS: ADMIT Specialist; ATTEND Specialist
PROC: 0SRB03Z Replacement of Left Hip Joint with Ceramic Synthetic Substitute, Open Approach (ICD-10-PCS; principal; 2018-04-02 08:00)
DX: M16.12 Unilateral primary osteoarthritis, left hip (principal); Z96.641 Presence of right artificial hip joint; Z88.0 Allergy status to penicillin; I10 Essential (primary) hypertension; I83.90 Asymptomatic varicose veins of unspecified lower extremity; Z96.653 Presence of artificial knee joint, bilateral; D64.9 Anemia, unspecified
CPT/HCPCS: 36415; 71046; 72170; 85014; 85018; 86850; 86900; 86920; 97139; C1713; J0171; J1100; J1885; J2001; J2250; J2795; J3370; J7030

== ENCOUNTER 2018-04-12 10:19 | Inpatient (IN) | payer MEDICARE ==
[~2018-04-12] VITALS: Ht 182.9 cm; Wt 124.1 kg
[2018-04-12] MEDS ORDERED: VANCOMYCIN 1GM/NS 250 ML 250 ML ONE (10:53)
[2018-04-12] MEDS ORDERED: BACITRACIN 50,000 UNIT VIAL ONE (11:54)
[2018-04-12] MEDS ORDERED: MUPIROCIN 2% OINT 22 GM TUBE ONE (12:50)
[2018-04-12] MEDS: SODIUM CHLORIDE 0.9% 1000ML 1,000 ML IV SCH ×2 (13:02→23:02)
[2018-04-12] MEDS ORDERED: HYDROCODONE/APAP 7.5MG-325MG 1 EA TAB PO PRN (13:15)
[2018-04-12] MEDS ORDERED: ONDANSETRON HCL INJ 2 MG/ML VIAL IV PRN (13:15)
[2018-04-12] MEDS ORDERED: DIPHENHYDRAMINE HCL INJ 50 MG/ML VIAL IM/IV PRN (13:15)
[2018-04-12] MEDS ORDERED: ACETAMINOPHEN 650 MG SUPP PR PRN (13:15)
[2018-04-12] MEDS ORDERED: KETOROLAC TROMETHAMINE 30 MG/ML VIAL IV PRN (13:15)
[2018-04-12] MEDS ORDERED: DOCUSATE SODIUM 100 MG CAP PO PRN (13:15)
[2018-04-12] MEDS ORDERED: PROMETHAZINE HCL (IM) 25 MG/ML VIAL IM PRN (13:15)
[2018-04-12] MEDS ORDERED: HYDROCODONE/APAP 5MG-325MG TAB PO PRN (13:15)
--- NOTE | 2018-04-12 13:54 | Operative Report ---
DATE OF PROCEDURE: April 12, 2018 PAINT MIXER MACHINE: Jan Soto PA-C The patient was brought to the operating room for induction of anesthesia. Throughout this case, my PA's assistance was necessary for retraction of soft tissue and positioning of the extremity. This allows for efficient and technically successful execution of the operation and is considered medically necessary. PREOPERATIVE DIAGNOSIS: Complications pertaining to left total hip arthroplasty. POSTOPERATIVE DIAGNOSIS: Complications pertaining to left total hip arthroplasty. PROCEDURE: Irrigation and debridement of left total hip arthroplasty. INDICATIONS: The patient is a 62-year-old gentleman who is 10 days status post a left total hip replacement. He has had an uneventful postoperative course. He was coming in today to have his followup visit. He noticed some drainage from the wound. When he presented to the clinic, he had a copious amount of the serosanguineous drainage. We discussed the options and elected to bring him back to the operating room for irrigation and debridement. The risks and benefits were explained. He stated he understood and wished to proceed. DESCRIPTION OF PROCEDURE: The patient was brought to the operating room. He was placed under general anesthetic. Antibiotics were held until cultures were taken. The wound had no evidence of erythema. The drainage was serosanguineous and not purulent. The left hip was prepped and draped in a sterile manner. A preoperative time out was performed. The wound was opened up. There was a moderate amount of serosanguineous fluid in the wound. There was no obvious necrotic tissue. All of the Ethibond stitches were removed. Any suspicious looking tissue was excised. The wound was thoroughly scrubbed with Betadine-soaked lap sponges. The posterior capsule was carefully inspected. The previous capsular repair was intact and looked quite good. I did not feel it was necessary to remove the capsular repair and dislocate the hip. All of this area was also scrubbed with Betadine-soaked lap sponges. Six liters of sterile saline were used to irrigate the hip. The deep fascia was then repaired with interrupted #2 Ethibond. The wound was closed over a medium Hemovac drain. The skin was closed with multiple interrupted 2-0 Prolene stitches. A sterile bandage was applied. The patient was returned to the supine position. Estimated blood loss was about 30 mL. At the end of the procedure, all needle and sponge counts were correct. Job#: [id number]
[2018-04-12 14:30] VITALS: BP 115/71
[2018-04-12] MEDS ORDERED: MIDAZOLAM HCL 2 MG/2 ML VIAL ONE (14:40)
[2018-04-12] MEDS ORDERED: FENTANYL CITRATE/PF 100MCG/2 ML INJ ONE (14:40)
[2018-04-12] MEDS ORDERED: LIDOCAINE HCL 2% LOCAL INJ 5 ML SDV VIAL INJ ONE (14:45)
[2018-04-12] MEDS ORDERED: ONDANSETRON HCL INJ 2 MG/ML VIAL ONE (14:45)
[2018-04-12] MEDS ORDERED: SUCCINYLCHOLINE 200 MG/10 ML SYR ONE (14:45)
[2018-04-12] MEDS ORDERED: ROCURONIUM BROMIDE 10 MG/ML 5ML VIAL ONE (14:45)
[2018-04-12] MEDS ORDERED: PROPOFOL IV EMULSION 10 MG/ML 20 ML VIAL ONE (14:45)
[2018-04-12] MEDS ORDERED: KETOROLAC TROMETHAMINE 30 MG/ML VIAL ONE (14:45)
[2018-04-12] MEDS ORDERED: DEXAMETHASONE SOD PHOS INJ 4 MG/ML VIAL ONE (14:45)
[2018-04-12] MEDS ORDERED: SEVOFLURANE INHAL SOLN 250 ML PEN BTL ONE (14:45)
--- OUTSIDE RECORDS SUMMARY | 2018-04-12 14:58 | XMS REPORT | Clinical Summary ---
Author Author [facility] Organization [facility] Address Unknown Phone Unavailable Care Team Providers Care Residential Program Worker Name Role Phone Albert Sherman MD [...] tabletIndications: TWO TIMES DAILY 18 Uncontrolled hypertension Meloxicam 15 mg TAKE 1 TABLET BY MOUTH 90 tablet 1 04/02/20 Active tabletIndications: Left DAILY 18 hip pain HYDROcodone-acetaminophen Take 1 tablet by mouth 11/01/19 [...] 1 tablet by mouth 30 tablet 2 10/31/11/15/19 tabletIndications: Status every 6 hours as needed [...] tablet by mouth 4 56 tablet 0 10/31/11/15/19 750 mg tabletIndications: times daily for 14 days. 18 18 Status post total replacement of right hip tiZANidine (ZANAFLEX) 4 Take 1 tablet by mouth 3 42 tablet 0 11/01/19 11/01/19 Discontin mg tabletIndications: times daily for 14 days. 18 18 ued Status post total replacement of right hip tiZANidine (ZANAFLEX) 4 Take 1 tablet by mouth 3 42 tablet 0 11/01/19 11/15/19 mg tabletIndications: times daily for 14 days. 18 18 Status post total replacement of right hip Active Problems Problem Noted Date Arthritis of left hip 01/10/2018 Overview: Added automatically from request for surgery [id number] Impaired functional mobility, balance, gait, and endurance 11/14/2017 S/P total hip arthroplasty 10/31/2017 Hip osteoarthritis 08/27/2017 Overview: Added automatically from request for surgery [id number] Arthritis of both hips 08/13/2017 Chronic right shoulder pain 08/10/2017 Pain of left hip joint 08/10/2017 Cellulitis and abscess of left leg 07/25/2017 Shoulder pain 02/10/2014 Resolved Problems Problem Noted Date Resolved Date Osteoarthritis of right hip 10/25/2017 10/31/2017 Overview: Added automatically from request for surgery [id number] Encounters Date Type Specialty Care Team Description [...] Dx); Arthritis of both hips 12/11/2017 Refill [facility] Albert Sherman MD Uncontrolled hypertension 12/10/2017 Hospital Radiology Keith Purvis MD Arthritis of both hips Encounter 12/10/2017 Office Visit OrthopedicKeith Hassan MD S/P hip replacement, Addie Kate MD right (Primary Dx) 12/10/2017 Ancillary Orthopedics Tavares Lopez RN Arthritis of both hips Orders 11/14/2017 Therapy Physical Therapy Chhaya, Nayeli, PT Status post total replacement of right hip (Primary Dx); Impaired functional mobility, balance, gait, and endurance 11/14/2017 Office Visit Orthopedics Addie Kate MD Status post total Keith Purvis MD replacement of right hip 11/14/2017 [facility]iology Keith Purvis MD Status post total Encounter replacement of right hip 11/07/2017 Emergency Emergency Medicine Blaine Nur MD Leg swelling (Primary Dx) 11/07/2017 Nurse Triage Tracy Hein RN 11/06/2017 Pharmacy Visit 11/05/2017 Pharmacy Visit 11/02/2017 Pharmacy Visit 11/01/2017 Pharmacy Visit 10/31/2017 Pharmacy Visit 10/30/2017 [facility] Addie Kate MD Primary osteoarthritis of - Encounter right hip (Primary Dx); 11/01/2017 Osteoarthritis of right hip, unspecified osteoarthritis type; Status post total replacement of right hip 10/30/2017 Procedure Pass 10/30/2017 Surgery Addie Kate MD ORTHO - REPLACEMENT, TOTAL HIP 10/23/2017 [facility] Keith Purvis MD Encounter 10/23/2017 Telephone Orthopedics Brandon Puente, Appointment Related ResidentMD Questions 10/23/2017 Procedure Pass 10/03/2017 Hospital Anesthesiology Karma Gleason NP Encounter 10/03/2017 Anesthesia Karma Gleason, ERASMO Event 09/18/2017 Nutrition Nutrition Kristel Peter 09/07/2017 Refill [facility] Albert Sherman MD Uncontrolled hypertension 08/27/2017 Hospital Radiology Patrice Anand MD Encounter 08/27/2017 Office Visit Orthopedics Keith Purvis MD Arthritis of both hips (Primary Dx) 08/24/2017 Ancillary Radiology Albert Sherman MD Procedure 08/24/2017 Office Visit Family Practice Albert Sherman MD Bilateral hip pain (Primary Dx) 08/20/2017 Refill Family Practice Albert Sherman MD Left hip pain 08/17/2017 Orders Only Family Albert Armendariz MD Occult blood positive stool (Primary Dx) 08/15/2017 Pharmacy Visit 08/13/2017 Office Visit Orthopedics Keith Purvis MD Arthritis of both hips (Primary Dx) 08/13/2017 Lab Appointment Lab Albert Sherman MD Screening for condition 08/13/2017 Hospital Radiology Albert Sherman MD Chronic right shoulder Encounter pain; Pain of left hip joint 07/31/2017 Office Visit General Surgery Melissa Cisse NP Right inguinal hernia (Primary Dx) 07/25/2017 Office Visit [facility] Lopez Christopher MD Cellulitis and abscess of left leg (Primary Dx) 07/20/2017 Office Visit [facility] Lopez Christopher MD Colon cancer screening (Primary Dx) 07/18/2017 Office Visit [facility] Lopez Christopher MD Cellulitis and abscess of leg, except foot (Primary Dx) 07/16/2017 Office Visit [facility] Lopez Pérez MD Inguinal hernia of right side without obstruction or gangrene (Primary Dx); Colon cancer screening; Cellulitis and abscess of leg, except foot 07/16/2017 Pharmacy Visit 07/10/2017 Hospital Radiology Albert Sherman MD Encounter 06/27/2017 Orders Only [facility] Albert Armendariz MD ERRONEOUS ENCOUNTER--DISREGARD (Primary Dx) 06/15/2017 Refill Family Practice Albert Sherman MD Uncontrolled hypertension 06/05/2017 Telephone [facility] Albert Sherman MD Other Follow-up 05/28/2017 Office Visit Family Albert Armendariz MD Right inguinal pain (Primary Dx); Left hip pain; Hypertriglyceridemia; Elevated bilirubin; Need for influenza vaccination; Need for qryuonaatv-awozqdk-jfbnrn sis (Tdap) vaccine; Screening for condition after 04/11/2017 Immunizations Name Dates Previously Given Next Due [...] 06/13/2018 Office Visit Gastroenterology Kalyn Auguste NP Ref#[id number] [address] [place] [id number] Health Maintenance Due Date Last Done Comments Colorectal Cancer Scrn 08/13/2018 08/13/2017 Annual (FIT/FOBT) Age 50 to 75 Implants Implanted Type Area Home Planning Consultant Salesperson Device Expiration Model / Identifier Date Serial / Lot Bone Screw 6.5mm Diameter 25mm Right: [employer] 08/16/2027 Length Hip(s) / Implanted: Qty: 1 on 10/30/2017 by / Addie Kate MD [id number] Taperloc Complete Primary Femoral Right: [employer] 05/05/2027 [id number] Porous Coated Stem Reduced Distal Hip(s) / [id number] Standard Offset Type 1 / Taper [id number] Implanted: Qty: 1 on 10/30/2017 by Addie Kate MD G7 Osseoti Acetabular Shell 4 Hole Right: [employer] 10/27/2025 [id number] Shell Size 64mm Liner Size H Hip(s) / Implanted: Qty: 1 on 10/30/2017 by / Addie Kate MD [id number] [id number] Acetabular Liner Neutral Arcomxl Right: [employer] EarDish 12/16/2019 [id number] Highly Crosslinked Head Size 40mm Hip(s) / Liner Size H / Implanted: Qty: 1 on 10/30/2017 by [id number] Addie Kate MD G7 Acetabular Liner Neutral E1 Head Right: [employer] EarDish 05/21/2022 [id number] Size 36mmm Liner H Hip(s) / Implanted: Qty: 1 on 10/30/2017 by / Addie Kate MD [id number] Modular Head Component +3mm Neck Right: [employer] 08/11/2027 [id number] 36mm Type 1 Taper Hip(s) / Implanted: Qty: 1 on 10/30/2017 by / Addie Kate MD [id number] Procedures Procedure Name Priority Date/Time Associated Diagnosis [...] CDT procedure are in the results section. INSTRUMENTS SALES REPRESENTATIVE Routine 10/30/2017 6:23 PM CDT CONSULT CLINICAL CASE Routine 10/30/2017 MANAGEMENT (RN/SW) 3:46 PM CDT CONSULT CLINICAL CASE Routine 10/30/2017 MANAGEMENT (RN/SW) 3:45 PM CDT INSTRUMENTS SALES REPRESENTATIVE Routine 10/30/2017 3:45 PM CDT IP CONSULT [...] hip pain Results for this 1:31 PM SALES TRAINING MANAGER procedure are in the results section. XRAY CHEST 2 VIEWS Routine 08/24/2017 Bilateral hip pain Results for this 1:28 PM SALES TRAINING MANAGER procedure are in the results section. XRAY HIP UNILATERAL 2/3 Routine 08/13/2017 Pain of left hip joint Results for this VIEWS 1:34 PM SALES TRAINING MANAGER procedure are in the results section. XRAY CLAVICLE COMPLETE Routine 08/13/2017 Chronic right shoulder Results for this 1:34 PM SALES TRAINING MANAGER pain procedure are in the results section. XRAY SHOULDER 2 VIEWS MIN Routine 08/13/2017 Chronic right shoulder Results for this 1:34 PM SALES TRAINING MANAGER pain procedure are in the results section. OCCULT BLOOD ICT Routine 08/13/2017 Screening for condition Results for this 11:10 AM SALES TRAINING MANAGER procedure are in the results section. HEMOCCULT KIT FOR Routine 07/20/2017 Colon cancer screening SPECIMEN COLLECTION AT 8:14 AM SALES TRAINING MANAGER HOME WOUND STAIN / CULTURE Routine 07/16/2017 Cellulitis and abscess of Results for this 9:58 AM SALES TRAINING MANAGER leg, except foot procedure are in the results section. HEMOCCULT KIT FOR Routine 07/16/2017 Colon cancer screening SPECIMEN COLLECTION AT 9:13 AM SALES TRAINING MANAGER HOME U/S EXTREMITY Routine 07/10/2017 Right inguinal pain Results for this NONVASCULAR, LIMITED 2:39 PM SALES TRAINING MANAGER procedure are in the results section. HEPATITIS PANEL Routine 05/28/2017 Elevated bilirubin Results for this 8:46 AM SALES TRAINING MANAGER procedure are in the results section. LIVER PROFILE Routine 05/28/2017 Elevated bilirubin Results for this 8:46 AM SALES TRAINING MANAGER procedure are in the results section. HEMOCCULT KIT FOR Routine 05/28/2017 Screening for condition SPECIMEN COLLECTION AT 8:19 AM SALES TRAINING MANAGER HOME after 04/11/2017 Results * XRAY HIP BILATERAL 2 VIEWS AND AP PELVIS (01/10/2018 8:23 AM) Only the most recent of 2 results within the time period is included. Impressions Performed At IMPRESSION: SMS 1.Unchanged satisfactory appearance of the right total hip arthroplasty without evidence of hardware complication. 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 This [facility] radiology report is a preliminary [...] At EXAM: XR BILATERAL HIP 2 VIEWS [facility] DATE:01/10/2018 8:23 AM INDICATION: PAIN. Arthritis of [...] necrosis of the left hip, unchanged. This [facility] radiology report is a preliminary [...] Narrative Performed At EXAM: XRHIP 3 VIEWS SMS DATE:12/10/2017 9:42 AM INDICATION: Pain COMPARISON: 11/14/2014 [...] MD, 12/10/2017 11:03 AM Performing Organization Address [facility] Phone Number SMS * VBG POC (11/07/2017 9:20 PM) Only the most recent of 2 results within the time period is included. pH, Ayaan POC 7.59 (H)Comment: Physician 7.33 - 7.43 [facility]-ST[facility] 1 Notified pCO2, Ayaan POC 29.0 (L) 38.0 - 50.0 mm Hg [facility] 1 pO2, Ayaan POC 29 (L) 50 - 75 mm Hg [facility] 1 Base Excess, Ayaan POC 6 mmol/L [facility] 1 HCO3, Ayaan POC 28.0 (H) 22.0 - 26.0 mmol/L [facility] % Sat, Ayaan POC 67 60 - 85 % [facility] 1 Lactic Acid, Ayaan POC 0.96 0.4 - 2.0 mmol/L [facility] 1 TCO2, AYAAN POC 29 21 - 32 mmol/L [facility] 1 Performing Organization Address [facility] Phone Number MISYS [facility] MAIN-STATION 1 * BMP POC (11/07/2017 9:19 PM) Only the most recent of 2 results within the time period is included. CO2 POC 27Comment: Physician Notified 21 - 32 mmol/L [facility] 1 Chloride POC 98 98 - 107 mmol/L [facility] 1 Potassium POC 3.9 3.50 - 5.10 mmol/L [facility] 1 Sodium POC 137 136 - 145 mmol/L [facility] 1 Glucose POC 114 (H) 74 - 106 mg/dL [facility] 1 Urea Nitrogen POC 24 (H) 7 - 18 mg/dL [facility] MAIN-STATION 1 Creatinine POC 1.3 0.6 - 1.3 mg/dL [facility]ATION 1 Calcium Ionized POC 1.16 1.15 - 1.29 mmol/L [facility]ATION 1 Hemoglobin POC 8.2 (L) 14.0 - 18.0 g/dL [facility] MAIN-STATION 1 Hematocrit POC 24.0 (L) 40.0 - 54.0 % [facility]IN-[facility]ATION 1 GFR, Estimated 56 mL/min/1.73 m2 [facility]IN-STATION 1 GFR, Estim, Afr-Am >60 mL/min/1.73 m2 [facility] MAIN-STATION 1 Performing Organization Address City/State/Zipcode Phone Number MISYS [facility] 1 * DUPLEX DOPPLER LOWER EXTREMITY VENOUS, UNILATERAL OR LIMITED (11/07/2017 7:50 PM) Impressions Performed At IMPRESSION: SMS 1.No deep venous thrombosis (DVT). This [facility] radiology report is a preliminary [...] 1. No deep venous thrombosis (DVT). This [facility] radiology report is a preliminary [...] MAIN-STATION 2 Specimen Blood Performing Organization Address City/[facility] Phone Number MISYS [facility] MAIN-STATION 2 * 12 LEAD EKG (11/07/2017 4:27 PM) 12 LEAD EKG FOR [facility] Test Date:2017-11-07 Pat Name: KRISTIN HEIN Department: Room: Gender: Whipper: [id number] :[id number] Requested By: Order Number: Mario ross MD: Thomas Bey Measurements Intervals [place] Rate: 76 P:34 MI: 148 QRS: -28 QRSD: 98 T:31 QT: 381 QTc:430 Interpretive Statements SINUS RHYTHM BORDERLINE LEFT AXIS DEVIATION NONSPECIFIC T-WAVE ABNORMALITY ABNORMAL EKG Electronically Signed On 11-07-17 17:18:46 CDT by Thomas Bey Performing Organization Address City/[facility] Phone Number [facility] * BASIC METABOLIC PANEL (10/31/2017 5:36 AM) Only the most recent of 2 results within the time period is included. CO2 24 21 - 32 mmol/L [facility] MAIN-STATION 4 Chloride 105 98 - 107 mmol/L [facility] MAIN-STATION 4 Potassium 4.4 3.50 - 5.10 mmol/L [facility] MAIN-STATION 4 Sodium 138 136 - 145 mmol/L [facility] MAIN-STATION 4 Glucose 128 (H) 70 - 99 mg/dL [facility] MAIN-STATION 4 Urea Nitrogen 26 (H) 7 - 18 mg/dL [facility] MAIN-STATION 4 Creatinine 1.13 0.60 - 1.30 mg/dL [facility] MAIN-STATION 4 Anion Gap 9 [facility] MAIN-STATION 4 Calcium 8.5 8.50 - 10.20 mg/dL [facility] 4 GFR, Estimated >60 mL/min/1.73 m2 [facility] 4 GFR, Estim, Afr-Am >60 mL/min/1.73 m2 [facility] 4 Specimen Blood Performing Organization Address City/State/Zipcode Phone Number ROJAS [facility] MAIN-STATION 4 * XRAY PELVIS 1 VIEW [...] Performed At EXAM: XR PELVIS 1 VIEW SMS EXAM: XR PELVIS 1 VIEW DATE:10/30/2017 at [...] MD, 10/30/2017 1:55 PM Performing Organization Address City/[employer] [place] Phone Number SMS * VENOUS CORD BLOOD HEMOGLOBIN (10/30/2017 10:33 AM) Cord Blood Hemoglobin 11.4 10.5 - 14.0 g/dL [facility] MAIN-STATION 2 Performing Organization Address [facility] Phone Number MISYS [facility] MAIN-STATION 2 * ELECTROLYTES (10/30/2017 10:33 AM) Sodium 138 136 - 145 mmol/L [facility] MAIN-STATION 2 Potassium 4.3 3.50 - 5.10 mmol/L [facility] MAIN-STATION 2 Chloride 107 98 - 107 mmol/L [facility] MAIN-STATION 2 CO2 24.2 21 - 32 mmol/L [facility] MAIN-STATION 2 Anion Gap 6.8 [facility] MAIN-STATION 2 Performing Organization Address [facility] Phone Number MISYS [facility] MAIN-STATION 2 * CALCIUM, IONIZED (10/30/2017 10:33 AM) Only the most recent of 2 results within the time period is included. Calcium, Ionized 1.38 (H) 1.15 - 1.29 mmol/L [facility] MAIN-STATION 2 Performing Organization Address [facility] Phone Number [employer] [facility] MAIN-STATION 2 * GLUCOSE (10/30/2017 10:33 AM) Only the most recent of 2 results within the time period is included. Glucose 143 (H) 70 - 99 mg/dL [facility] MAIN-STATION 2 Performing Organization Address [facility]/[employer] [place] Phone Number MISYS [facility] MAIN-STATION 2 * BLOOD GAS, AYAAN (10/30/2017 10:33 AM) Only the most recent of 2 results within the time period is included. Temperature 37.0 degree C [facility] MAIN-STATION 2 pH, Ayaan 7.30 (L) 7.33 - 7.43 [facility] MAIN-STATION 2 pCO2, Ayaan 50.8 (H) 38.0 - 50.0 mm Hg [facility] MAIN-STATION 2 pO2, Ayaan 72.7 50 - 75 mm Hg [facility] MAIN-STATION 2 Base Excess, Ayaan NEG1 mmol/L [facility] MAIN-STATION 2 HCO3, Ayaan 24.2 22.0 - 26.0 mmol/L [facility] MAIN-STATION 2 % Sat, Venous 93 (H) 60 - 85 % [facility] MAIN-STATION 2 Performing Organization Address City/[facility] Phone Number [facility] MAIN-STATION 2 * VENOUS HEMOGLOBIN (10/30/2017 9:32 AM) Venous Hemoglobin 12.7 (L) 14.0 - 18.0 g/dL [facility] MAIN-STATION 2 Performing Organization Address [facility] Phone Number [facility] MAIN-STATION 2 * SODIUM (10/30/2017 9:32 AM) Sodium 137 136 - 145 mmol/L [facility] MAIN-STATION 2 Performing Organization Address [facility] Phone Number [facility] MAIN-STATION 2 * POTASSIUM (10/30/2017 9:32 AM) Potassium 4.2 3.50 - 5.10 mmol/L [facility] MAIN-STATION 2 Performing Organization Address [facility] Phone Number [facility] MAIN-STATION 2 * CHLORIDE (10/30/2017 9:32 AM) Chloride 106 98 - 107 mmol/L [facility] MAIN-STATION 2 Performing Organization Address [facility] Phone Number [facility] MAIN-STATION 2 * PT/INR (10/03/2017 10:45 AM) PT 13.7 11.8 - 15.0 Seconds [facility] MAIN-STATION 1 INR 1.1 [facility] MAIN-STATION 1 SUGGESTED THERAPEUTIC RANGES: INR 2.0-3.0 for MODERATE INTENSITY ANTICOAGULATION INR 2.5-3.5 for HIGH INTENSITY ANTICOAGULATION Specimen Blood Performing Organization Address City/[facility] Phone Number [facility] MAIN-STATION 1 * 12 LEAD EKG (08/24/2017 1:31 PM) 12 LEAD EKG FOR [facility] Test Date:2017-08-24 Pat Name: KRISTIN HEIN Department: Room: [facility] Gender: M Whipper: [id number] :1956-0 07-01 Requested By: Order Number: Mario ross MD: Shaheen GRULLON Measurements Intervals [place] Rate: 63 P:46 MI: 150 QRS: -37 QRSD: 96 T:41 QT: 404 QTc:413 Interpretive Statements Normal sinus rhythm Left axis deviation POOR R WAVE PROGRESSION ABNORMAL EKG Electronically Signed On 08-24-17 15:21:48 SALES TRAINING MANAGER by Shaheen GRULLON Performing Organization Address City/State/[facility] Phone Number SMS * XRAY CHEST 2 VIEWS (08/24/2017 1:28 PM) Impressions Performed At IMPRESSION: SMS No acute cardiac or pulmonary pathology is identified in the chest. Signed By: Pasquale Pat MD, 08/27/2017 8:01 AM Narrative Performed At EXAM: XR CHEST 2 VIEWS [facility] DATE:08/24/2017 1:21 PM INDICATION: Medical clearance [...] MD, 08/27/2017 8:01 AM Performing Organization Address City/[facility] Phone Number SMS * XRAY SHOULDER 2 VIEWS MIN (08/13/2017 1:34 PM) Impressions Performed At IMPRESSION: SMS Mild degenerative changes of AC and glenohumeral joints. Hypertrophic changes of the greater tuberosity suggesting chronic rotator cuff degeneration. Signed By: Indio Richardson MD, 08/13/2017 1:52 PM Narrative Performed At EXAM: XR RIGHT SHOULDER 3 VIEWS [facility] DATE:08/13/2017 1:34 PM INDICATION: ROTATOR CUFF [...] Interface, Rad/Mammog In - 08/13/2017 1:57 PM SALES TRAINING MANAGER EXAM: XR RIGHT SHOULDER 3 VIEWS [...] MD, 08/13/2017 1:52 PM Performing Organization Address [facility] Phone Number SMS * XRAY CLAVICLE COMPLETE (08/13/2017 1:34 PM) Impressions Performed At IMPRESSION: SMS No fractures identified. Mild degenerative changes of the AC joint. Signed By: Indio Richardson MD, 08/13/2017 1:42 PM Narrative Performed At EXAM: XR RIGHT CLAVICLE 2 VIEWS [facility] DATE:08/13/2017 1:34 PM INDICATION: ROTATOR CUFF TEAR COMPARISON: None available TECHNIQUE: AP and axial views of the right clavicle FINDINGS: No fracture, periosteal reaction, or erosions identified. Joint alignment is normal. Mild degenerative changes of AC joint noted. Soft tissues are unremarkable. Procedure Note Interface, Rad/Mammog In - 08/13/2017 1:47 PM SALES TRAINING MANAGER EXAM: XR RIGHT CLAVICLE 2 VIEWS [...] MD, 08/13/2017 1:42 PM Performing Organization Address [facility] Phone Number SMS * OCCULT BLOOD ICT (08/13/2017 11:10 AM) Occult Blood ICT Positive (A) NEG [facility] Specimen Stool Performing Organization Address [facility] Phone Number MISYS [facility] * WOUND STAIN / CULTURE (07/16/2017 9:58 AM) Spec Description Leg [facility] Order Comments None [facility] Gram Stain No organisms seen BT [...] Wound abscess - LEG Performing Organization Address [facility] Phone Number [facility] BT MICROBIOLOGY * U/S EXTREMITY NONVASCULAR, LIMITED (07/10/2017 2:39 PM) Impressions Performed At IMPRESSION: SMS Small fat-containing right inguinal hernia. This [facility] radiology report is a preliminary [...] is seen in the left inguinal region, resources representative of status post hernia repair. Procedure Note Interface, Rad/Mammog In - 07/10/2017 4:26 PM SALES TRAINING MANAGER EXAM: US BILATERAL INGUINAL ULTRASOUND DATE: 07/10/2017 2:39 PM INDICATION: Right Inguinal pain ADDITIONAL INFORMATION: None. COMPARISON: CT abdomen pelvis with contrast on 02/04/2014. TECHNIQUE: Multiplanar grayscale and color Doppler ultrasound of the bilateral inguinal region. FINDINGS: There is a small fat-containing right inguinal hernia. No inguinal hernia seen on the left. A mesh is seen in the left inguinal region, resources representative of status post hernia repair. IMPRESSION IMPRESSION: Small fat-containing right inguinal hernia. This [facility] radiology report is a preliminary resident dictation until finalized by an attending. Changes to this preliminary report may occur in an additional preliminary or finalized version. Dictated By: Dangelo Ferrell MD, 07/10/2017 3:34 PM I have reviewed the study and agree with the findings in this report. Signed By: Jovany Navarrete MD, 07/10/2017 4:21 PM Performing Organization Address [facility] Phone Number SMS * LIVER PROFILE (05/28/2017 [...] MAIN-STATION 3 Specimen Blood Performing Organization Address [facility] Phone Number MISYS BT MAIN-STATION 3 * HEPATITIS PANEL (05/28/2017 8:46 AM) HCV IgG Negative NEG BT MAIN-STATION 3 HBsAg Negative NEG BT MAIN-STATION 3 HAV, IgM Negative NEG BT MAIN-STATION 3 HBcAb, IgM Negative NEG BT MAIN-STATION 3 Specimen Blood Performing Organization Address City/State/Zipcode Phone Number MISYS BT MAIN-STATION 3 after 04/11/2017
[2018-04-12 15:15] VITALS: BP 115/71
[2018-04-12 16:24] VITALS: BP 116/67
[2018-04-12] MEDS ORDERED: CELECOXIB 100 MG CAP PO SCH (17:00)
[2018-04-12] MEDS: ASPIRIN 325 MG TAB PO SCH (18:00)
[2018-04-12] MEDS: CELECOXIB 200 MG CAP PO SCH (18:00)
[2018-04-12 19:15] LABS: BASOPHILS # (AUTO) 0.1 (0.0-0.1); BASOPHILS % 0.5 % (0.0-1.0); EOSINOPHILS % 0.3 % (0.0-6.0); HEMATOCRIT 35.5 % (38.2-49.6); HEMOGLOBIN 11.8 g/dL (14.0-18.0); LYMPHOCYTES # (AUTO) 1.1 (1.0-3.2); LYMPHOCYTES % 9.5 % (18.0-39.1); MEAN CORPUSCULAR HEMOGLOBIN 30.6 pg (28-32); MEAN CORPUSCULAR HGB CONC 33.2 g/dL (31-35); MONOCYTES # (AUTO) 0.3 (0.2-0.8); MONOCYTES % 2.1 % (4.4-11.3); NEUTROPHILS # (AUTO) 10.3 (2.1-6.9); PLATELET COUNT 312 x10e3/uL (140-360); RED BLOOD COUNT 3.86 x10e6/uL (4.3-5.7); RED CELL DISTRIBUTION WIDTH 14.2 % (11.7-14.4)
[2018-04-12 20:00] VITALS: BP 98/58
[2018-04-12] MEDS ORDERED: ZOLPIDEM TARTRATE 5 MG TAB PO PRN (21:00)
[2018-04-12 21:01] LABS: ALBUMIN 3.2 g/dL (3.5-5.0); ALBUMIN/GLOBULIN RATIO 1.1 (0.8-2.0); ANION GAP 13.3 mmol/L (8-16); CALCIUM 8.8 mg/dL (8.4-10.2); CREATININE, SERUM 1.41 mg/dL (0.72-1.25); POTASSIUM 4.3 mmol/L (3.5-5.1)
[2018-04-12] MEDS: VANCOMYCIN 1GM/NS 250 ML 250 ML IV SCH (21:08)
[2018-04-13] VITALS (7 sets, daily range): BP systolic 98–121; BP diastolic 58–72
--- NOTE | 2018-04-13 04:07 | Diagnostic Imaging Report ---
CHEST XRAY LINE PLACEMENT, 04/13/2018 3:46 AM Technique: CHEST XRAY LINE PLACEMENT Comparison: 04.01.18. Clinical history: ^PICC placement ^[id number] ^[id number] Findings: See Impression Impression: 1. Lines/Tubes: Left PICC placement with tip overlying the proximal SVC. 2. Stable cardiomediastinal silhouette. 3. Linear left basilar opacity, favor atelectasis/scarring. 4. No effusion or pneumothorax. Signed by: Dr Sophie Shepard MD on 04/13/2018 4:04 AM
[2018-04-13] MEDS: SODIUM CHLORIDE 0.9% 1000ML 1,000 ML IV SCH (09:02)
[2018-04-13] MEDS: VANCOMYCIN 1GM/NS 250 ML 250 ML IV SCH ×2 (09:15→21:13)
[2018-04-13] MEDS: ASPIRIN 325 MG TAB PO SCH ×2 (09:15→17:21)
[2018-04-13] MEDS: CELECOXIB 200 MG CAP PO SCH ×2 (09:15→17:21)
[2018-04-13] MEDS: CEFEPIME HCL 2 GM VIAL IV SCH ×2 (10:00→22:00)
[2018-04-13 10:17] LABS: HEMATOCRIT 34.9 % (38.2-49.6); HEMOGLOBIN 11.4 g/dL (14.0-18.0)
[2018-04-13] MEDS ORDERED: ACETAMINOPHEN 1000 MG/100 ML IV PRN (13:15)
[2018-04-13] MEDS ORDERED: VANCOMYCIN 1GM/NS 250 ML 250 ML IV SCH (14:00)
[2018-04-13 14:37] LABS: BASOPHILS # (AUTO) 0.1 (0.0-0.1); EOSINOPHILS # (AUTO) 0.8 (0.0-0.4); EOSINOPHILS % 6.8 % (0.0-6.0); HEMATOCRIT 35.2 % (38.2-49.6); HEMOGLOBIN 11.6 g/dL (14.0-18.0); LYMPHOCYTES # (AUTO) 2.5 (1.0-3.2); LYMPHOCYTES % 21.9 % (18.0-39.1); MEAN CORPUSCULAR HEMOGLOBIN 30.7 pg (28-32); MEAN CORPUSCULAR VOLUME 93.1 fL (81-99); MONOCYTES # (AUTO) 0.9 (0.2-0.8); MONOCYTES % 8.2 % (4.4-11.3); NEUTROPHILS % 61.6 % (38.7-80.0); PLATELET COUNT 298 x10e3/uL (140-360); RED BLOOD COUNT 3.78 x10e6/uL (4.3-5.7); RED CELL DISTRIBUTION WIDTH 14.4 % (11.7-14.4)
--- NOTE | 2018-04-13 15:24 | Progress Note ---
DATE: April 13, 2018 INTERNAL MEDICINE PROGRESS NOTE SUBJECTIVE: Patient is doing well. No significant complaints today. PHYSICAL EXAM VITAL SIGNS: Blood pressure is 101/60, temperature 97.6, heart rate 59 per minute, respiratory rate 18 per minute, and ox saturation is 94%. HEART: Regular rhythm. Normal S1, S2 sounds. LUNGS: Clear bilaterally. ABDOMEN: Soft. EXTREMITIES: Showed drainage from the left hip. BLOOD WORK: We have BMP; sodium 135, potassium 4.3, chloride 102, CO2 24, BUN 27, creatinine 1.41, and glucose 150. On the CBC; white blood count 11.7, hemoglobin 11.8, hematocrit 35.5, and platelet count of 620,000. AST 10, ALT 11. Total bilirubin 1.1 and alkaline phosphatase 54. FINAL IMPRESSION 1. Left hip hematoma or seroma rule out infection. 2. Bqyfj-yj-fsujetn renal failure. PLAN OF TREATMENT: Continue vancomycin 1 gram IV twice a day. Continue Tylenol 1000 mg q.6 hours as needed for pain. Normal saline 100 mL an hour. Benadryl 12.5 mg q.6 hours as needed. [place] 1 tablet q.4 hours as needed for pain. Ambien 5 mg at night p.r.n. for sleep. Tylenol 650 mg q.4 hours as needed. [place] 1 tablet q.4 hours as needed for severe pain. Promethazine 12.1 mg IV q.6 hours as needed for vomiting. Colace 100 mg twice a day. Zofran 4 mg IV q.6 hours as needed. Celebrex 200 mg twice a day. Aspirin 325 mg twice a day. Ketorolac 30 mg IV q.6 hours as needed. Job#: [id number] STEPHANIE
--- NOTE | 2018-04-13 16:31 | Consultation ---
DATE OF CONSULTATION: April 13, 2018 REASON FOR CONSULTATION: Infection of the hip surgical wound. HISTORY OF PRESENT ILLNESS: This patient is very pleasant gentleman, 62-year-old, who had history of osteoarthritis. Had bilateral total knee replacement, had right hip replacement, had left hip replacement few weeks ago. The patient was doing well, had no problems postop, went home, went to followup and during the followup he noted there was drainage coming from his wound. Patient was admitted. He was admitted on April 12, 2018, underwent debridement of his wound. The patient had cultures done before the antibiotic. The wound had no evidence of erythema but drainage was serosanguineous, not purulent. The left hip was prepped and underwent debridement by Dr. [place]. Infectious disease was consulted today. Patient is currently lying in bed comfortably, has no complaints at the present time. PAST MEDICAL HISTORY: Osteoarthritis. PAST SURGICAL HISTORY: As above. ALLERGIES: PENICILLIN. SOCIAL HISTORY: There is no smoking, drug abuse, alcohol abuse. FAMILY HISTORY: Unremarkable. REVIEW OF SYSTEMS HEENT: Negative. PULMONARY: Negative. CARDIAC: Negative. : Negative. SKIN: There are no other rashes. He denies any fever or chills at the present time. All other systems within normal limit. MEDICATIONS: His medication list reviewed. He is currently on Celebrex, Toradol and Zofran. His culture is still pending. LABS: White count 11.09, hemoglobin 11.8, platelets 312. Sodium 135, potassium 4.3 and liver enzymes within normal limit. He is currently on Celebrex, Phenergan. PHYSICAL EXAMINATION GENERAL: He is currently alert, oriented, does not seem to be in acute distress. VITALS: Stable, currently afebrile. HEENT: Not icteric. NECK: Supple. CHEST: Clear. HEART: S1, S2. No murmur. ABDOMEN: Soft. Bowel sounds present. No tenderness. EXTREMITIES: No edema. He does have a drain noted bloody. IMPRESSION AND PLAN: Surgical wound dehiscence with drainage, probably superficial. Agree, we will put the patient on vancomycin 1 gram q.12, cefepime 2 gram q.12. Await culture and sensitivity. We will get a PICC line. Recheck CBC. Recheck chem panel. Weekly CBC. Weekly chem panel. Obtain sed rate, C-reactive protein. We will follow with you. Job#: [id number] ANDREY
[2018-04-14] VITALS (7 sets, daily range): BP systolic 108–145; BP diastolic 60–77
[2018-04-14 06:07] LABS: HEMATOCRIT 32.7 % (38.2-49.6); HEMOGLOBIN 10.9 g/dL (14.0-18.0)
[2018-04-14] MEDS: ASPIRIN 325 MG TAB PO SCH ×2 (08:26→16:48)
[2018-04-14] MEDS: CELECOXIB 200 MG CAP PO SCH ×2 (08:26→16:48)
[2018-04-14] MEDS: VANCOMYCIN 1GM/NS 250 ML 250 ML IV SCH ×2 (09:18→21:26)
[2018-04-14] MEDS: CEFEPIME HCL 2 GM VIAL IV SCH (11:51)
--- NOTE | 2018-04-14 13:28 | Progress Note ---
DATE: April 14, 2018 INTERNAL MEDICINE PROGRESS NOTE SUBJECTIVE: Patient is doing well. The drain has been removed by orthopedic surgeon freezer assistant. I am going to wait for infectious disease decision whether or not to continue the IV antibiotic at home. PHYSICAL EXAMINATION VITAL SIGNS: Blood pressure 112/62, temperature 97.7, heart rate 69 per minute, respiratory rate 19 per minute, oxygen saturation 94%. HEART: Regular rhythm. Normal S1, S2 sound. LUNGS: Clear bilaterally. ABDOMEN: Soft. EXTREMITIES: Show no evidence of cyanosis, edema, or trauma except for incision on the left hip. LABORATORY DATA: On the BMP; sodium 135, potassium 4.3, chloride 102, CO2 of 24, BUN 27, creatinine 1.41, glucose 150. On the CBC; white blood count 11.3, hemoglobin 10.9, hematocrit 32.7, platelet count 298,000. AST 10, ALT 11, total bilirubin 1.1, alkaline phosphatase 54. FINAL IMPRESSION 1. Hematoma on the left hip area, status post left total hip replacement, rule out infection. 2. Chronic renal insufficiency stage 3. PLAN OF TREATMENT: Continue vancomycin. Continue cefepime. Continue Tylenol 650 mg q.4 hours as needed. Continue promethazine 12.5 mg every q.4 hours as needed, [place] 1 tablet q.4 hours as needed for pain, Colace 100 mg twice a day, Zofran 4 mg IV q.6 hours as needed, Celebrex 200 mg twice a day, aspirin 325 mg daily. I am going to discontinue the Toradol. Continue cefepime 2 gram IV twice a day. Continue vancomycin 1 gram IV twice a day, Ambien 5 mg at night. Job#: [id number] MICHAEL
[2018-04-15] VITALS (7 sets, daily range): BP systolic 101–126; BP diastolic 58–76
[2018-04-15] MEDS: CEFEPIME HCL 2 GM VIAL IV SCH ×2 (00:19→12:38)
[2018-04-15 07:51] LABS: BASOPHILS # (AUTO) 0.1 (0.0-0.1); BASOPHILS % 0.7 % (0.0-1.0); EOSINOPHILS # (AUTO) 1.3 (0.0-0.4); EOSINOPHILS % 14.2 % (0.0-6.0); HEMATOCRIT 34.2 % (38.2-49.6); HEMOGLOBIN 11.3 g/dL (14.0-18.0); LYMPHOCYTES # (AUTO) 1.4 (1.0-3.2); MEAN CORPUSCULAR HEMOGLOBIN 30.5 pg (28-32); MEAN CORPUSCULAR VOLUME 92.4 fL (81-99); MONOCYTES # (AUTO) 0.8 (0.2-0.8); MONOCYTES % 8.4 % (4.4-11.3); NEUTROPHILS # (AUTO) 5.7 (2.1-6.9); PLATELET COUNT 258 x10e3/uL (140-360); RED CELL DISTRIBUTION WIDTH 14.6 % (11.7-14.4)
[2018-04-15 08:04] LABS: ALANINE AMINOTRANSFERASE 12 IU/L (0-55); ALBUMIN 2.9 g/dL (3.5-5.0); ALBUMIN/GLOBULIN RATIO 1.1 (0.8-2.0); ALKALINE PHOSPHATASE 54 IU/L (40-150); ANION GAP 10.2 mmol/L (8-16); BLOOD UREA NITROGEN 16 mg/dL (7-26); BUN/CREATININE RATIO 21 (6-25); CALCIUM 8.2 mg/dL (8.4-10.2); CARBON DIOXIDE 23 mmol/L (22-29); CHLORIDE 110 mmol/L (98-107); CREATININE, SERUM 0.76 mg/dL (0.72-1.25); EST GLOMERULAR FILTRATION RATE > 60 ML/MIN (60-); GLUCOSE 104 mg/dL (74-118); POTASSIUM 4.2 mmol/L (3.5-5.1); SODIUM 139 mmol/L (136-145)
[2018-04-15] MEDS: ASPIRIN 325 MG TAB PO SCH ×2 (08:48→17:52)
[2018-04-15] MEDS: CELECOXIB 200 MG CAP PO SCH (08:48)
[2018-04-15] MEDS: VANCOMYCIN 1GM/NS 250 ML 250 ML IV SCH (08:48)
--- NOTE | 2018-05-27 15:07 | Discharge Summary ---
CHIEF COMPLAINT: Left hip drainage. HISTORY OF PRESENT ILLNESS: This patient is a 62-year-old male who underwent a left total hip replacement on April 02, 2018 under our service. He states initially he was doing well. He states that the morning of the , he started noticing fluid coming out of the bandage. He states, he then noticed the drainage increased and he saturated his shorts. He states his pain is manageable and he denies any fever or chills. His examination showed copious serous drainage coming from the incision. There were no hard signs of infection. The findings and options were discussed with the patient. I explained that he has a large seroma in the left hip. I explained the increased risk of developing an infection. We recommended emergent irrigation and debridement. We also explained the likelihood of long-term IV antibiotics through a PICC line. The patient states he understands and wished to proceed. We put him on the scheduled that afternoon. HOSPITAL COURSE: The patient underwent irrigation and debridement of the left total hip arthroplasty without complications. He was then transferred to the recovery room in the floor in stable condition. He did fine in his postoperative care. He started IV antibiotics through a PICC line per infectious diseases' recommendation. He did nicely with physical therapy. Once home IV antibiotics were set up, he was able to be discharged home on postop day 3. PRINCIPAL DIAGNOSIS: Seroma status post left total hip arthroplasty. PRINCIPAL PROCEDURE: Irrigation and debridement of the left total hip arthroplasty. DISCHARGE INSTRUCTIONS: The patient was discharged home and will resume home therapy. He will continue with home IV antibiotics through his PICC line per infectious diseases' recommendation. He was instructed to resume his home medications as directed. He was to follow up in our office in roughly 1 week for a wound check. DICTATED BY: Jan Soto PA-C SHERRY STOKES MD Job#: [id number] STEPHANIE
== END 2018-04-15 18:06 | disposition home health service (06) | DRG 902 ==
LOC: OR 10:19 → PACU V 13:05 → MED/SURG 15:03
PROVIDERS: ADMIT Specialist; ATTEND Specialist
PROC: 0J9M0ZZ Drainage of Left Upper Leg Subcutaneous Tissue and Fascia, Open Approach (ICD-10-PCS; 2018-04-12)
PROC: 3E10X8Z Irrigation of Skin and Mucous Membranes using Irrigating Substance (ICD-10-PCS; 2018-04-12)
PROC: 0JBM0ZZ Excision of Left Upper Leg Subcutaneous Tissue and Fascia, Open Approach (ICD-10-PCS; principal; 2018-04-12 12:00)
PROC: 02HV33Z Insertion of Infusion Device into Superior Vena Cava, Percutaneous Approach (ICD-10-PCS; 2018-04-13)
DX: T81.31XA Disruption of external operation (surgical) wound, not elsewhere classified, initial encounter (principal); M96.840 Postprocedural hematoma of a musculoskeletal structure following a musculoskeletal system procedure; N17.9 Acute kidney failure, unspecified; Z96.653 Presence of artificial knee joint, bilateral; Z96.641 Presence of right artificial hip joint; Z88.0 Allergy status to penicillin; N18.3 Chronic kidney disease, stage 3 (moderate); E66.9 Obesity, unspecified; Z68.37 Body mass index [BMI] 37.0-37.9, adult
CPT/HCPCS: 36415; 36569; 71045; 80053; 80202; 85014; 85018; 85025; 85651; 86140; 87071; 87075; 87205; 97139; J0692; J1100; J1885; J2001; J2250; J2405; J3370; J7030